=== PATIENT | female | born 1985 | race Caucasian/White ===

== ENCOUNTER → 2020-09-21 11:07 | Outpatient (BNVA) | payer MEDICARE, MEDICAID, SELFPAY | PROVIDERS: Visit Provider Advanced Practice Midwife | DX: Z30.42 Encounter for surveillance of injectable contraceptive (principal) | CPT/HCPCS: 99211 ==

== ENCOUNTER → 2020-12-18 13:01 | Outpatient (BNVA) | payer MEDICARE, MEDICAID, SELFPAY | PROVIDERS: Visit Provider Advanced Practice Midwife | DX: Z30.42 Encounter for surveillance of injectable contraceptive (principal) | CPT/HCPCS: 96372; 99211 ==

== ENCOUNTER → 2021-01-26 15:42 | Outpatient (BNVA) | payer MEDICARE, MEDICAID, SELFPAY | PROVIDERS: Visit Provider Advanced Practice Midwife | DX: Z13.89 Encounter for screening for other disorder (principal) | CPT/HCPCS: Q3014 ==

== ENCOUNTER → 2021-03-15 13:00 | Outpatient (BNVA) | payer MEDICARE, MEDICAID, SELFPAY | PROVIDERS: PCP Internal Medicine; Visit Provider Advanced Practice Midwife | DX: Z30.42 Encounter for surveillance of injectable contraceptive (principal) | CPT/HCPCS: 96372; 99211; J1050 ==

== ENCOUNTER → 2021-06-12 15:05 | Outpatient (BNVA) | payer MEDICARE, MEDICAID, SELFPAY | PROVIDERS: Visit Provider Advanced Practice Midwife | DX: Z30.42 Encounter for surveillance of injectable contraceptive (principal) | CPT/HCPCS: 96372; 99211 ==

== ENCOUNTER 2021-06-19 10:45 | Outpatient (REF) | payer MEDICARE, MEDICAID, SELFPAY ==
[2021-06-19 13:12] LABS: MANUAL DIFF FLAG NO
[2021-06-19 13:16] LABS: Basophils Absolute Auto 0.1 X10*3/uL (0.0-0.2); Basophils Percent Auto 0.6 % (0-2); Eosinophils Absolute Auto 0.2 X10*3/uL (0.0-0.4); Eosinophils Percent Auto 2.3 % (0-4); Hemoglobin 13.5 g/dl (12.0-16.0); Imm Gran Abs Auto 0.02 X10*3/uL (0.00-0.03); Imm Gran Pct Auto 0.3 % (0.0-0.4); Lymphocytes Absolute Auto 1.9 X10*3/uL (1.2-4.9); Lymphocytes Percent Auto 23.3 % (20-40); Mean Corpuscular HGB Conc 32.9 g/dl (31.0-35.0); Mean Corpuscular Hemoglobin 27.5 pg (27.0-33.0); Mean Corpuscular Volume 83.5 fL (80-98); Mean Platelet Volume 9.2 fL (9.4-12.3); Monocytes Absolute Auto 0.7 X10*3/uL (0.1-1.2); Monocytes Percent Auto 8.8 % (2-11); Neutrophils Absolute Auto 5.1 X10*3/uL (2.0-8.3); Neutrophils Percent Auto 64.7 % (45-73); Platelet Count 288 X10*3/uL (160-400); Red Blood Count 4.91 X10*6/uL (4.20-5.50); Red Cell Distribution Width 13.1 % (11.0-16.0); White Blood Count 7.9 X10*3/uL (4.8-10.8)
[2021-06-19 13:31] LABS: Alanine Aminotransferase 23 U/L (0-31); Albumin Level 4.5 g/dL (3.5-5.0); Alkaline Phosphatase 86 U/L (39-117); Anion Gap 12 (12-20); Aspartate Amino Transferase 19 U/L (5-31); Bilirubin Total 0.5 mg/dL (0.0-1.0); Blood Urea Nitrogen 11 mg/dL (9-16); Calcium 9.4 mg/dL (8.4-10.2); Carbon Dioxide 22 mmol/L (22-29); Chloride 109 mmol/L (96-108); Cholesterol 160 mg/dL; Estimated Glomerular Filt Rate > 60; Glucose Fasting 106 mg/dL (60-99); HDL Cholesterol 46 mg/dL; LDL Cholesterol Calculated 102 mg/dl; Potassium 4.2 mmol/L (3.3-5.1); Sodium 139 mmol/L (135-145); Total Protein 7.2 g/dL (6.5-8.0); Triglycerides 62 mg/dL
[2021-06-22 14:46] LABS: TS Negative Control Passed; TS Panel A 4; TS Panel B 0; TS Positive Control Passed; TSpotTB Negative (SeeBelow)
== END 2021-06-19 10:46 | disposition home or self-care (01) ==
LOC: HO.10HDL 10:45
PROVIDERS: Visit Provider Internal Medicine
DX: Z00.00 Encounter for general adult medical examination without abnormal findings (principal); E11.9 Type 2 diabetes mellitus without complications; Z11.1 Encounter for screening for respiratory tuberculosis
CPT/HCPCS: 36415; 80053; 80061; 85025; 86481

== ENCOUNTER → 2021-06-21 11:33 | Outpatient (BNVA) | payer MEDICARE, MEDICAID, SELFPAY | PROVIDERS: Visit Provider Advanced Practice Midwife | CPT/HCPCS: Q3014 ==

== ENCOUNTER → 2021-08-22 13:42 | Outpatient (BNVA) | payer MEDICARE, MEDICAID, SELFPAY | PROVIDERS: Visit Provider Advanced Practice Midwife | DX: Z01.419 Encounter for gynecological examination (general) (routine) without abnormal findings (principal); Z30.42 Encounter for surveillance of injectable contraceptive | CPT/HCPCS: 96372 ==

== ENCOUNTER → 2021-11-07 09:07 | Outpatient (BNVA) | payer MEDICARE, MEDICAID, SELFPAY | PROVIDERS: Visit Provider Advanced Practice Midwife | DX: Z30.42 Encounter for surveillance of injectable contraceptive (principal) | CPT/HCPCS: 96372; 99211 ==

== ENCOUNTER 2021-11-22 08:50 | Outpatient (REF) | payer MEDICARE, MEDICAID, SELFPAY ==
[2021-11-22 11:09] LABS: Alanine Aminotransferase 29 U/L (0-31); Albumin Level 4.1 g/dL (3.5-5.0); Alkaline Phosphatase 77 U/L (39-117); Anion Gap 12 (12-20); Aspartate Amino Transferase 20 U/L (5-31); Bilirubin Total 0.7 mg/dL (0.0-1.0); Blood Urea Nitrogen 11 mg/dL (9-16); Carbon Dioxide 21 mmol/L (22-29); Chloride 109 mmol/L (96-108); Estimated Glomerular Filt Rate > 60; Glucose Fasting 93 mg/dL (60-99); Potassium 4.2 mmol/L (3.3-5.1); Sodium 138 mmol/L (135-145); Total Protein 6.9 g/dL (6.5-8.0)
== END 2021-11-22 08:51 | disposition home or self-care (01) ==
LOC: HO.10HDL 08:50
PROVIDERS: Visit Provider Nurse Practitioner Family
DX: Z13.1 Encounter for screening for diabetes mellitus (principal)
CPT/HCPCS: 36415; 80053

== ENCOUNTER → 2022-01-28 11:34 | Outpatient (BNVA) | payer MEDICARE, MEDICAID, SELFPAY | PROVIDERS: PCP Internal Medicine; Visit Provider Advanced Practice Midwife | DX: Z30.42 Encounter for surveillance of injectable contraceptive (principal) | CPT/HCPCS: 96372; 99211 ==

== ENCOUNTER → 2022-04-30 09:04 | Outpatient (BNVA) | payer MEDICARE, MEDICAID, SELFPAY | PROVIDERS: PCP Internal Medicine; Visit Provider Advanced Practice Midwife | DX: Z30.42 Encounter for surveillance of injectable contraceptive (principal) | CPT/HCPCS: 96372; 99211 ==

== ENCOUNTER → 2022-07-23 09:02 | Outpatient (BNVA) | payer MEDICARE, MEDICAID, SELFPAY | PROVIDERS: PCP Internal Medicine; Visit Provider Advanced Practice Midwife | DX: Z30.42 Encounter for surveillance of injectable contraceptive (principal) | CPT/HCPCS: 96372; 99211 ==

== ENCOUNTER 2024-05-28 09:58 | Outpatient (AMB) | payer MEDICARE, MEDICAID, SELFPAY ==
[2024-05-28 10:00] VITALS: BP 128/80; PULSE 84; O2SAT 97; BMI 48.3
--- NOTE | 2024-05-28 10:00 | A.OFFPC_ITS ---
Vital Signs 05/28/24 10:00 Height 4 ft 10 in Weight 231 lb BMI 48.3 BP 128/80 Blood Pressure Location Lt brachial Position Sitting Pulse 84 Pulse Source Pulse Oximeter Pulse Oximetry (%) 97 Oxygen Delivery Method Room Air Intake Visit Reasons: annual exam Intake Note: Patient is here today for a physical. Sheet Turner Required: No Accompanied by: Self / Same As Patient Allergies No Known Allergies Allergy (Verified 05/28/24 10:05) Medication List - Last Reconciled 05/28/24 by Roney Reilly MD albuterol sulfate 90 mcg/actuation 2 puffs inhalation Q6H PRN lidocaine HCl 2% (Lidocaine Viscous) 5 mL mucous membrane BID PRN 15 days medroxyprogesterone (Depo-Provera) 150 mg IM [id number] methylphenidate HCl ER 36 mg PO QAM omeprazole 20 mg PO DAILY 14 days paroxetine HCl 40 mg PO quetiapine 100 mg PO BEDTIME Tobacco use date assessed: 05/28/24 HPI annual exam HPI Details Asthma and depression on rx; sees psychiatry [facility] Medical History Developmental delay, mild Morbid obesity with BMI of 45.0-49.9, adult Sleep disorder Surgical History No pertinent past surgical history Family History Unknown Adopted Social History Housing: House Alcohol intake: never Patient Tobacco Use Status: Never used Tobacco e-Cigarette/Vaping Use: Never Used Second Hand Smoke Exposure: No service: No Current occupational status: disabled Cognitive needs: No Hearing needs: No Vision needs: No Female Reproductive History Menstrual Age of Menarche: 14 Questionnaire PHQ-9 Over the last 2 weeks, how often have you been bothered by any of the following problems? 1. Little interest or pleasure in doing things: not at all 2. Feeling down, depressed, or hopeless: not at all 3. Trouble falling or staying asleep, or sleeping too much: not at all 4. Feeling tired or having little energy: not at all 5. Poor appetite or overeating: not at all 6. Feeling bad about yourself - or that you are a failure or have let yourself or your family down: not at all 7. Trouble concentrating on things, such as reading the newspaper or watching television: not at all 8. Moving or speaking so slowly that other people could have noticed. Or the opposite - being so fidgety or restless that you have been moving around a lot more than usual: not at all 9. Thoughts that you would be better off or of hurting yourself in some way: not at all Total score: 0 Depression Screening Interpretation: Negative Depression Screening Done: Yes 23508 - PHQ-9 Billing: Yes Source: Developed by Drs. Sid Alfred, Rossy Otto, Juwan Hay and colleagues, with an educational marti from [employer]. Thrive Questionnaire Date Thrive assessed: 05/28/24 I am a: Patient What is your living situation today?: I have a steady place to live Within the past 12 months, did the food you bought not last and you didn't have the money to get more?: Never true Within the past 12 months, did you worry whether your food would run out before you got money to buy more?: Never true Do you have trouble paying for medicines?: No Do you have trouble getting transportation to medical appointments?: No Do you have trouble paying your heating and electricity bill?: No Do you have trouble taking care of your child, family member or friend?: No Do you have trouble with day-to-day activities such as bathing, preparing meals, shopping, managing finances, etc.?: No Are you currently unemployed and looking for a job?: No Are you interested in more education?: No Please select the resources that you would like help with: None Currently or been in a relationship where the following occur: No concerns reported THRIVE Score: 0 AUDIT C Alcohol Use Questionnaire (AUDIT-C) 1. How often do you have a drink containing alcohol?: Never 3. How often do you have six or more drinks on one occasion?: Never Total Score: 0 Score Reviewed/Action Taken: Yes BAIRON-7 AMB Questionnaire BAIRON-7 Date BAIRON - 7 assessed: 05/28/24 Feeling nervous, anxious, or on edge: 0 = Not at all Not being able to stop or control worryin = Not at all Worrying too much about different things: 0 = Not at all Trouble relaxin = Not at all Being so restless that it is hard to sit still: 0 = Not at all Becoming easily annoyed or irritable: 0 = Not at all Feeling afraid as if something awful might happen: 0 = Not at all Total BAIRON-7 score (0-4 normal; 5-9 mild; 10-14 moderate; 15-21 severe): 0 Source: Developed by Drs. Sid Alfred, Rossy Otto, Juwan Hay and colleagues, with an educational marti from [employer]. BAIRON-7 Assessment Billing BAIRON-7 Assessment Tool: BAIRON-7 Assessment 34679 Review of Systems Const Denies chills, Denies fatigue, Denies headache(s) and Denies weight loss Eyes Denies change in vision, Denies diplopia and Denies eye pain ENT Denies vertigo, Denies dizziness, Denies headache(s) and Denies nasal discharge Card Denies chest pain, Denies rapid heart rate and Denies dyspnea on exertion Resp Denies chest congestion, Denies cough, Denies pain with cough and Denies dyspnea on exertion GI Denies abdominal pain, Denies hematochezia and Denies change in bowel habits Musc Denies myalgias, Denies arthralgias and Denies joint swelling Skin/Breast Denies lesions and Denies unusual bruising Neuro Denies vertigo, Denies dizziness, Denies headache(s) and Denies focal weakness Endo Denies fatigue Physical exam (Primary Care) Vital Signs: Last Vital Signs Pulse 84 05/28/24 10:00 BP 128/80 05/28/24 10:00 Pulse Ox 97 05/28/24 10:00 Oxygen Delivery Method Room Air 05/28/24 10:00 BMI result Body Mass Index 48.3 Tobacco/Smoking Status: Tobacco use Status Tobacco use date assessed 05/28/24 05/28/24 10:07 Patient Tobacco Use Status Never used Tobacco 05/28/24 10:03 e-Cigarette/Vaping Use Never Used 05/28/24 10:03 PHQ-9: PHQ-9 Score PHQ-9: Total score 0 05/28/24 10:07 Depression Screening Interpretation: Negative Thrive Assessment: Date of Thrive Assessment Date Thrive assessed 05/28/24 05/28/24 10:07 Currently or been in a relationship where the following occur: No concerns reported Const General: cooperative, healthy appearing and no acute distress Orientation/consciousness: oriented to person, oriented to place and oriented to time HENMT Head: Yes normal to inspection, Yes normocephalic and Yes atraumatic Mouth: Normal oral and palatal mucosa present and tongue normal Throat: Yes posterior oropharynx normal and Yes uvula midline Eyes General: appearance normal, both eyes and all related structures Neck Neck: Yes normal visual inspection, Yes full ROM and Yes no lymphadenopathy Thyroid: Thyroid normal Carotids: normal carotid upstroke Chest Chest palpation & inspection: normal inspection of the chest Resp Effort & Inspection: normal respiratory effort and able to speak in complete sentences Auscultation: clear to auscultation bilaterally Cardio Jugular venous distension: no JVD Palpation: normal PMI Rate: regular rate Rhythm: regular rhythm Heart sounds: S1 normal heart sound present and S2 normal heart sound present GI Inspection: Yes normal to inspection Palpation (GI): Soft to palpation and No hepatosplenomegaly present Auscultation: normal bowel sounds General: Yes no CVA tenderness Back/Spine/Pelvis Back: no CVA tenderness Skin General skin exam: no rashes or lesions noted Neuro General: oriented to person, oriented to place and oriented to time Extrem General: Yes normal to inspection and Yes full ROM Assessment and Plan Assessment & Plan (1) Physical exam: Comment: do labs Code(s): Z00.00 - Encounter for general adult medical examination without abnormal findings Plan: stable; do labs (2) Depression: Code(s): F32.9 - Major depressive disorder, single episode, unspecified Plan: stable; as per psych (3) Asthma: Code(s): J45.909 - Unspecified asthma, uncomplicated Plan: stable; same rx Orders: Orders Lipid Panel Today Z13.220 - Encounter for screening for lipoid disorders Thyroid Stimulating Hormone Today Z13.29 - Encounter for screening for other suspected endocrine disorder Complete Blood Count Auto Diff Today Z13.0 - Encounter for screening for diseases of the blood and blood-forming organs and certain disorders involving the immune mechanism Comprehensive [place]. Panel Fast Today Z13.9 - Encounter for screening, unspecified Coding Level of Care Code Est Pt Prev Care 18-39y(97254) Diagnoses Physical exam Z00.00 Depression F32.9 Asthma J45.909 Additional Codes BAIRON-7 Assessment Billing - BAIRON-7 Assessment Tool: BAIRON-7 Assessment 55080 ([id number])
== END 2024-05-28 10:43 | disposition home or self-care (01) ==
PROVIDERS: PCP Internal Medicine; Visit Provider Internal Medicine
DX: Z00.00 Encounter for general adult medical examination without abnormal findings (principal); F32.9 Major depressive disorder, single episode, unspecified; J45.909 Unspecified asthma, uncomplicated
CPT/HCPCS: 99395

== ENCOUNTER 2024-06-17 09:05 | Outpatient (REF) | payer MEDICARE, MEDICAID, SELFPAY ==
[2024-06-17 09:22] LABS: MANUAL DIFF FLAG NO
[2024-06-17 09:38] LABS: Basophils Absolute Auto 0.1 X10*3/uL (0.0-0.2); Basophils Percent Auto 0.9 % (0-2); Eosinophils Absolute Auto 0.3 X10*3/uL (0.0-0.4); Eosinophils Percent Auto 3.7 % (0-4); Hematocrit 41.1 % (37.0-47.0); Hemoglobin 13.5 g/dl (12.0-16.0); Imm Gran Abs Auto 0.02 X10*3/uL (0.00-0.03); Imm Gran Pct Auto 0.2 % (0.0-0.4); Lymphocytes Absolute Auto 1.9 X10*3/uL (1.2-4.9); Lymphocytes Percent Auto 22.1 % (20-40); Mean Corpuscular HGB Conc 32.8 g/dl (31.0-35.0); Mean Corpuscular Hemoglobin 27.8 pg (27.0-33.0); Mean Corpuscular Volume 84.7 fL (80.0-98.0); Mean Platelet Volume 8.7 fL (9.4-12.3); Monocytes Absolute Auto 0.8 X10*3/uL (0.1-1.2); Monocytes Percent Auto 9.1 % (2-11); Neutrophils Absolute Auto 5.4 x10*3/uL (2.0-8.3); Platelet Count 223 X10*3/uL (160-400); Red Blood Count 4.85 X10*6/uL (4.20-5.50); Red Cell Distribution Width 13.4 % (11.0-16.0); White Blood Count 8.5 X10*3/uL (4.8-10.8)
[2024-06-17 10:11] LABS: Alanine Aminotransferase 23 U/L (0-31); Albumin Level 4.3 g/dL (3.5-5.0); Alkaline Phosphatase 86 U/L (39-117); Anion Gap 11 (12-20); Aspartate Amino Transferase 17 U/L (5-31); Bilirubin Total 0.6 mg/dL (0.0-1.0); Blood Urea Nitrogen 9 mg/dL (9-16); Calcium 9.1 mg/dL (8.4-10.2); Carbon Dioxide 24 mmol/L (22-29); Chloride 109 mmol/L (96-108); Cholesterol 160 mg/dL (<200); Estimated Glomerular Filt Rate > 60; Glucose Fasting 116 mg/dL (60-99); HDL Cholesterol 50 mg/dL (>40); LDL Cholesterol Calculated 95 mg/dL (<100); Potassium 4.1 mmol/L (3.3-5.1); Sodium 140 mmol/L (135-145); Triglycerides 78 mg/dL (<150)
[2024-06-17 10:29] LABS: Thyroid Stimulating Hormone 2.02 uIU/mL (0.32-4.0)
== END 2024-06-17 09:06 | disposition home or self-care (01) ==
LOC: HO.LAB 09:05
PROVIDERS: PCP Internal Medicine; Visit Provider Internal Medicine
DX: Z13.220 Encounter for screening for lipoid disorders (principal); Z13.0 Encounter for screening for diseases of the blood and blood-forming organs and certain disorders involving the immune mechanism; Z13.29 Encounter for screening for other suspected endocrine disorder; Z13.6 Encounter for screening for cardiovascular disorders
CPT/HCPCS: 36415; 80053; 80061; 84443; 85025

== ENCOUNTER 2024-10-04 11:05 | Outpatient (AMB) | payer MEDICARE, MEDICAID, SELFPAY ==
[2024-10-04 11:06] VITALS: BP 112/70; PULSE 91; O2SAT 97; BMI 48.7
--- NOTE | 2024-10-04 11:06 | A.OFFPC_ITS ---
Vital Signs 10/04/24 11:06 Height 4 ft 10 in Weight 233 lb 0.2 oz BMI 48.7 BP 112/70 Blood Pressure Location Lt brachial Position Sitting Pulse 91 Pulse Source Pulse Oximeter Pulse Oximetry (%) 97 Oxygen Delivery Method Room Air Intake Visit Reasons: Med review Allergies No Known Allergies Allergy (Verified 10/04/24 11:07) Tobacco use date assessed: 10/04/24 HPI Med review HPI Details Depression on rx; no longer seeing psych [facility] Medical History Developmental delay, mild Morbid obesity with BMI of 45.0-49.9, adult Sleep disorder Surgical History No pertinent past surgical history Family History Unknown Adopted Social History Housing: House Alcohol intake: never Patient Tobacco Use Status: Never used Tobacco e-Cigarette/Vaping Use: Never Used Second Hand Smoke Exposure: No service: No Current occupational status: disabled Cognitive needs: No Hearing needs: No Vision needs: No Female Reproductive History Menstrual Age of Menarche: 14 Questionnaire Thrive Questionnaire Date Thrive assessed: 05/28/24 AUDIT C Alcohol Use Questionnaire (AUDIT-C) 1. How often do you have a drink containing alcohol?: Never 3. How often do you have six or more drinks on one occasion?: Never Total Score: 0 Score Reviewed/Action Taken: Yes BAIRON-7 AMB Questionnaire BAIRON-7 Date BAIRON - 7 assessed: 05/28/24 Source: Developed by Drs. Sid Alfred, Rossy Otto, Juwan Hay and colleagues, with an educational marti from [employer]. Review of Systems Const Denies chills, Denies headache(s) and Denies weight loss ENT Denies headache(s) Card Denies chest pain, Denies syncope, Denies irregular heart rhythm and Denies dyspnea Resp Denies chest congestion, Denies cough and Denies dyspnea GI Denies abdominal pain, Denies change in stool character, Denies nausea and Denies vomiting Musc Denies deformity and Denies joint swelling Neuro Denies syncope and Denies headache(s) Physical exam (Primary Care) Vital Signs: Last Vital Signs Pulse 91 10/04/24 11:06 BP 112/70 10/04/24 11:06 Pulse Ox 97 10/04/24 11:06 Oxygen Delivery Method Room Air 10/04/24 11:06 BMI result Body Mass Index 48.7 Tobacco/Smoking Status: Tobacco use Status Tobacco use date assessed 10/04/24 10/04/24 11:07 Patient Tobacco Use Status Never used Tobacco 10/04/24 11:07 e-Cigarette/Vaping Use Never Used 10/04/24 11:07 Thrive Assessment: Date of Thrive Assessment Date Thrive assessed 05/28/24 10/04/24 11:07 Const General: cooperative, comfortable, no acute distress and alert Neck Neck: Yes no lymphadenopathy Thyroid: Thyroid normal Resp Effort & Inspection: normal respiratory effort Auscultation: clear to auscultation bilaterally Percussion: percussion normal Cardio Jugular venous distension: no JVD Palpation: normal PMI Rate: regular rate Rhythm: regular rhythm Heart sounds: S1 normal heart sound present and S2 normal heart sound present GI Inspection: Yes normal to inspection Palpation (GI): No hepatosplenomegaly present Skin General skin exam: no rashes or lesions noted Extrem General: Yes no clubbing, cyanosis or edema Coding Level of Care Code Est Pt Level 3 (53963) Diagnoses Depression F32.9 Assessment & Plan Assessment & Plan (1) Depression: Code(s): F32.9 - Major depressive disorder, single episode, unspecified Category: Medical Plan: stable; cont rx Medications: New quetiapine 150 mg PO DAILY 30 tabs 4RF fluoxetine 20 mg PO DAILY 30 caps 4RF
== END 2024-10-04 12:10 | disposition home or self-care (01) ==
PROVIDERS: PCP Internal Medicine; Visit Provider Internal Medicine
DX: F32.9 Major depressive disorder, single episode, unspecified (principal)

== ENCOUNTER → 2024-10-04 11:05 | Outpatient (BNVA) | payer MEDICARE, MEDICAID, SELFPAY | PROVIDERS: PCP Internal Medicine; Visit Provider Internal Medicine | DX: F32.9 Major depressive disorder, single episode, unspecified (principal) | CPT/HCPCS: 99212 ==

== ENCOUNTER 2024-11-12 23:50 | Emergency (ER) | payer MEDICARE, MEDICAID, SELFPAY ==
--- NOTE | 2024-11-12 | ECG_ITS ---
Test Reason : CHEST PAIN Blood Pressure : / mmHG Vent. Rate : 103 BPM Atrial Rate : 103 BPM P-R Int : 128 ms QRS Dur : 090 ms QT Int : 366 ms P-R-T Axes : 025 -36 025 degrees QTc Int : 479 ms Sinus tachycardia Left axis deviation Pulmonary disease pattern Abnormal ECG No previous ECGs available Referred By: Generic ED Physician Electronically Signed By:JESUS PABLO MD
--- NOTE | ~2024-11-12 | XR_ITS ---
CLINICAL HISTORY: chest pain 2 view chest x-ray Comparison: None Findings: The lungs are clear. Heart size is normal. No acute fracture. IMPRESSION: 1. No acute findings. This document has been electronically signed by: Damien Yoder MD on 11/13/2024 01:14:43
--- OUTSIDE RECORDS SUMMARY | 2024-11-12 23:54 | XMS_ITS | Patient Health Record ---
Author Organization [facility] Address [address] [place] [address] Care Team Providers Care Venue Attendant Name Role Phone Tommie FARFAN, Roney Primary Care Provider Autumn Carlin Unavailable [phone] Reason For Referral No Information Encounters Encounter Location Date Provider Diagnosis [facility] [address] [place] [address] 10/05/2024 Autumn Ordonez Plan Of Treatment Next Appt Details Provider Name:Autumn john, 12/15/2024 09:30:00 AM, [address] [place], [address], Insurance Providers Payer Name Payer Address Payer Phone Subscriber Number Group Number Insured Name Patient Relationship to Insured Coverage Start Date Coverage End Date Medicare National [facility] [address] [place] [address] [id number] Chandni Shaikh Self - patient is the insured
[2024-11-13 00:05] VITALS: BP 140/81; PULSE 98; RESP 20; TEMP 36.1; O2SAT 99; BMI 43.6
--- OUTSIDE RECORDS SUMMARY | 2024-11-13 00:11 | XMS_ITS | Patient Health Record ---
Author Organization [facility] Address [address] [place] [address] Care Team Providers Care Regional Driver Name Role Phone Tommie FARFAN, Roney Primary Care Provider Autumn Carlin Unavailable [phone] Reason For Referral No Information Encounters Encounter Location Date Provider Diagnosis [facility] [address] [place] [address] 10/05/2024 Autumn Ordonez Plan Of Treatment Next Appt Details Provider Name:Autumn john, 12/15/2024 09:30:00 AM, [address] [place], [address], Insurance Providers Payer Name Payer Address Payer Phone Subscriber Number Group Number Insured Name Patient Relationship to Insured Coverage Start Date Coverage End Date Medicare National [facility] [address] [place] [address] [id number] Chandni Shaikh Self - patient is the insured
[2024-11-13 00:42] LABS: MANUAL DIFF FLAG NO
[2024-11-13 00:43] LABS: Basophils Absolute Auto 0.1 X10*3/uL (0.0-0.2); Basophils Percent Auto 0.4 % (0-2); Eosinophils Absolute Auto 0.2 X10*3/uL (0.0-0.4); Eosinophils Percent Auto 1.5 % (0-4); Hemoglobin 13.6 g/dl (12.0-16.0); Imm Gran Abs Auto 0.03 X10*3/uL (0.00-0.03); Imm Gran Pct Auto 0.3 % (0.0-0.4); Lymphocytes Absolute Auto 2.5 X10*3/uL (1.2-4.9); Lymphocytes Percent Auto 22.1 % (20-40); Mean Corpuscular Hemoglobin 27.9 pg (27.0-33.0); Mean Corpuscular Volume 82.1 fL (80.0-98.0); Mean Platelet Volume 8.9 fL (9.4-12.3); Monocytes Absolute Auto 0.9 X10*3/uL (0.1-1.2); Neutrophils Absolute Auto 7.6 x10*3/uL (2.0-8.3); Neutrophils Percent Auto 67.7 % (45-73); Platelet Count 246 X10*3/uL (160-400); Red Blood Count 4.87 X10*6/uL (4.20-5.50); Red Cell Distribution Width 13.1 % (11.0-16.0); White Blood Count 11.2 X10*3/uL (4.8-10.8)
[2024-11-13 00:53] LABS: IDNOW Serial# 6674DD1D; Strep A Nucleic Acid Negative (Negative)
[2024-11-13 00:58] LABS: Alanine Aminotransferase 27 U/L (0-31); Albumin Level 4.5 g/dL (3.5-5.0); Alkaline Phosphatase 86 U/L (39-117); Anion Gap 14 (12-20); Aspartate Amino Transferase 29 U/L (5-31); Bilirubin Total 0.5 mg/dL (0.0-1.0); Blood Urea Nitrogen 6 mg/dL (9-16); Calcium 9.1 mg/dL (8.4-10.2); Carbon Dioxide 19 mmol/L (22-29); Chloride 110 mmol/L (96-108); Creatinine Clr Calc Pharmacy 100.5; Estimated Glomerular Filt Rate > 60; Glucose Random 85 mg/dL (60-115); Potassium 3.7 mmol/L (3.3-5.1); Sodium 139 mmol/L (135-145); Total Protein 7.4 g/dL (6.5-8.0)
[2024-11-13 01:10] LABS: Troponin-I High Sensitivity < 2.7 ng/L (<3.5-17.0)
[2024-11-13 01:20] LABS: Influenza A PCR NEGATIVE (Negative); Influenza B PCR NEGATIVE (Negative); Resp Syncy Virus RNA Qual PCR NEGATIVE (Negative); SARS COV2 PCR INHOUSE NEGATIVE (Negative)
--- NOTE | 2024-11-13 02:23 | ED_ITS ---
HPI - Chest Pain General Chief Complaint: Chest Pain Stated Complaint: tight chest , hard time swallowing Time Seen by Provider: 11/13/24 01:47 Source: patient Mode of arrival: ambulatory Limitations: no limitations History of Present Illness ED Provider: HPI narrative: Patient's history of asthma complaining of throat pain mid chest pain for last 1 week feeling increased anxious has any sick contacts no fever no chills no shortness a breath Related Data Home Medications ?Medication ?Instructions ?Recorded ?Confirmed methylphenidate HCl 36 mg 36 mg PO QAM 01/07/22 05/28/24 tablet,extended release 24 hr Previous Rx's ?Medication ?Instructions ?Recorded medroxyprogesterone 150 mg/mL 150 mg IM [id number] #1 mL 08/22/21 intramuscular suspension (Depo-Provera) lidocaine HCl 2 % mucosal solution 5 ml mucous membrane BID PRN pain 01/19/22 (Lidocaine Viscous) 15 days #100 mL omeprazole 20 mg capsule,delayed 20 mg PO DAILY 14 days #14 caps 01/19/22 release albuterol sulfate 90 mcg/actuation 2 puff inhalation Q6H PRN 05/07/24 aerosol inhaler shortness of breath or wheezing #8.5 grams fluoxetine 20 mg capsule 20 mg PO DAILY #30 caps 10/04/24 quetiapine 150 mg tablet 150 mg PO DAILY #30 tabs 10/04/24 cefuroxime axetil 500 mg tablet 500 mg PO BID 7 days #14 tabs 11/13/24 Allergies Allergy/AdvReac Type Severity Reaction Status Date / Time No Known Allergies Allergy Verified 11/13/24 15:14 Review of Systems 2 Review of Systems: Yes all other systems are reviewed and are negative PMFSH Past Medical History Medical History Morbid obesity with BMI of 45.0-49.9, adult Developmental delay, mild Sleep disorder Surgical History No pertinent past surgical history Family History Family History Unknown Adopted Social History Social History Housing: House Alcohol intake: never Patient Tobacco Use Status: Never used Tobacco e-Cigarette/Vaping Use: Never Used Second Hand Smoke Exposure: No Advance Directives: No Advance Directives Information Provided: No Do you have a plan to hurt others: No Plan service: No Current occupational status: disabled Cognitive needs: No Hearing needs: No Vision needs: No Physical Exam 2 Vital Signs: Vital Signs: Last Vital Signs Temp 98.3 F 11/13/24 03:13 Pulse 92 11/13/24 03:13 Resp 16 11/13/24 03:13 BP 142/84 H 11/13/24 03:13 Pulse Ox 100 11/13/24 03:13 O2 Del Method Room Air 11/13/24 03:13 BMI result Body Mass Index 43.6 Appearance: Alert. Oriented X3. No acute distress. ENT: Pharynx normal. Oral Mucosa moist Neck: Normal inspection. Neck supple. CVS: Normal heart rate and rhythm. Pulses normal. Respiratory: No respiratory distress. Equal air entry bilateral, no wheezing/rales/rhonchi Abdomen: Soft and nontender. Bowel sounds are present, no mass palpable, no CVA tenderness Skin: Skin warm and dry. Normal skin color. Normal skin turgor. Extremities: No lower extremity edema. No calf tenderness Neuro: Oriented X 3. Medications Administered Discontinued Medications Generic Name Dose Route Start Last Admin Trade Name Freq PRN Reason Stop Dose Admin Cefuroxime Axetil 500 mg 11/13/24 02:32 11/13/24 03:04 Cefuroxime Axetil 500 Mg Tablet PO 11/13/24 02:33 500 mg ONCE ONE Administration Medical Decision Making Medical Decision Making [facility] Narrative: Patient with anxiety with globus sensation the throat workup is negative will discharge patient home advised to continue her anxiety medication Lab Data [facility] Lab Attestation statement: I reviewed the patient's lab results. 11/13/24 00:29 11/13/24 00:29 Labs: Lab Results 11/13/24 Range/Units 00:29 WBC 11.2 H (4.8-10.8) X10*3/uL RBC 4.87 (4.20-5.50) X10*6/uL Hgb 13.6 (12.0-16.0) g/dl Hct 40.0 (37.0-47.0) % MCV 82.1 (80.0-98.0) fL MCH 27.9 (27.0-33.0) pg MCHC 34.0 (31.0-35.0) g/dl RDW 13.1 (11.0-16.0) % Plt Count 246 (160-400) X10*3/uL MPV 8.9 L (9.4-12.3) fL Immature Gran % (Auto) 0.3 (0.0-0.4) % Neut % (Auto) 67.7 (45-73) % Lymph % (Auto) 22.1 (20-40) % [place] % (Auto) 8.0 (2-11) % Eos % (Auto) 1.5 (0-4) % Baso % (Auto) 0.4 (0-2) % Lymph # (Auto) 2.5 (1.2-4.9) X10*3/uL [place] # (Auto) 0.9 (0.1-1.2) X10*3/uL Eos # (Auto) 0.2 (0.0-0.4) X10*3/uL Baso # (Auto) 0.1 (0.0-0.2) X10*3/uL Abs Immat Gran (auto) 0.03 (0.00-0.03) X10*3/uL Absolute Neuts (auto) 7.6 (2.0-8.3) x10*3/uL Absolute Nucleated RBC 0.000 (0.0-0.012) X10*3/uL Nucleated RBC % (auto) 0.0 (0.0-0.2) /100WBC Sodium 139 (135-145) mmol/L Potassium 3.7 (3.3-5.1) mmol/L Chloride 110 H (96-108) mmol/L Carbon Dioxide 19 L (22-29) mmol/L Anion Gap 14 (12-20) BUN 6 L (9-16) mg/dL Creatinine 0.78 (0.5-1.4) mg/dL Estim Creat Clear Calc 100.5 Estimated GFR > 60 Random Glucose 85 (60-115) mg/dL Calcium 9.1 (8.4-10.2) mg/dL Total Bilirubin 0.5 (0.0-1.0) mg/dL AST 29 (5-31) U/L ALT 27 (0-31) U/L Alkaline Phosphatase 86 (39-117) U/L Troponin I High Sens < 2.7 (<3.5-17.0) ng/L Total Protein 7.4 (6.5-8.0) g/dL Albumin 4.5 (3.5-5.0) g/dL Influenza Type A (PCR) NEGATIVE (Negative) Influenza Type B (PCR) NEGATIVE (Negative) RSV RNA Qual (PCR) NEGATIVE (Negative) SARS-CoV-2 RNA (RT-PCR) NEGATIVE (Negative) S. pyogenes GrpA FARIDEH Negative (Negative) Independent Interpretation I performed an independent interpretation of an: EKG Interpretation: Sinus tachycardia heart rate 103 beats per minute normal intervals left axis no acute ST-T changes no acute ischemia Discharge Plan Discharge Clinical Impression: Globus sensation Patient Disposition: Home, Self-Care Instructions: Pharyngitis (ED) Additional Instructions: Take antibiotic as prescribed Saline gargles Follow with your PCP if not better Prescriptions: New cefuroxime axetil 500 mg tablet 500 mg PO BID 7 Days Qty: 14 0RF No Action albuterol sulfate 90 mcg/actuation HFA aerosol inhaler 2 puff inhalation Q6H PRN (Reason: shortness of breath or wheezing) Qty: 8.5 8RF methylphenidate HCl 36 mg tablet extended release 24hr 36 mg PO QAM lidocaine HCl [Lidocaine Viscous] 2 % solution 5 ml mucous membrane BID PRN (Reason: pain) 15 Days Qty: 100 0RF omeprazole 20 mg capsule,delayed release(DR/EC) 20 mg PO DAILY 14 Days Qty: 14 0RF medroxyprogesterone [Depo-Provera] 150 mg/mL suspension 150 mg IM [id number] Qty: 1 3RF fluoxetine 20 mg capsule 20 mg PO DAILY Qty: 30 4RF quetiapine 150 mg tablet 150 mg PO DAILY Qty: 30 4RF Interventions: ED Discharge Assessment Last Done: 11/13/24 03:13 Discharge Date/Time: 11/13/24 03:15 Print Language: Georgian
[2024-11-13] MEDS: cefuroxime axetiL 500 MG TABLET PO (03:04)
[2024-11-13 03:09] VITALS: BP 142/84; PULSE 92; RESP 16; O2SAT 100
[2024-11-13 03:13] VITALS: BP 142/84; PULSE 92; RESP 16; TEMP 36.8; O2SAT 100
== END 2024-11-13 03:15 | disposition home or self-care (01) ==
PROVIDERS: Emergency Provider Internal Medicine; PCP Internal Medicine
DX: F45.8 Other somatoform disorders (principal); J02.9 Acute pharyngitis, unspecified; F41.9 Anxiety disorder, unspecified; Z03.818 Encounter for observation for suspected exposure to other biological agents ruled out; J45.909 Unspecified asthma, uncomplicated; Z79.899 Other long term (current) drug therapy
CPT/HCPCS: 0241U; 71046; 80053; 84484; 85025; 87651; 93005; 99284

== ENCOUNTER → 2024-11-12 23:58 | Outpatient (BNV) | payer MEDICARE, MEDICAID, SELFPAY | PROVIDERS: Emergency Provider Internal Medicine; PCP Internal Medicine; Visit Provider Internal Medicine Cardiovascular Disease | DX: R07.9 Chest pain, unspecified (principal); R00.0 Tachycardia, unspecified; R94.31 Abnormal electrocardiogram [ECG] [EKG] | CPT/HCPCS: 93010 ==

== ENCOUNTER 2024-11-13 14:56 | Emergency (ER) | payer MEDICARE, MEDICAID, SELFPAY ==
[2024-11-13 15:14] VITALS: BP 107/62; PULSE 92; RESP 18; TEMP 36.3; O2SAT 97; BMI 43.6
--- NOTE | 2024-11-13 15:16 | ED.URI ---
HPI - URI/Sore Throat General Chief Complaint: General Medical Stated Complaint: diff swallowing Time Seen by Provider: 11/13/24 19:20 Source: patient, RN notes reviewed and old records reviewed Mode of arrival: ambulatory Limitations: no limitations History of Present Illness ED Provider: Shaila MONACO Narrative: 39-year-old female presents for evaluation of difficulty swallowing. Nursing notes report the patient has a sore throat, but the patient denies this. She reports that she does not have a sore throat. She reports some discomfort in her chest when she was swallowing The patient's mother states that the patient does not cut up her food or chew before swallowing The patient was seen here late last night and had labs and a strep swab that were reassuring. She reports that she was prescribed antibiotics but has not yet filled them from the pharmacy It is unclear what she was prescribed antibiotics for as her strep test was negative twice Related Data Home Medications ?Medication ?Instructions ?Recorded ?Confirmed methylphenidate HCl 36 mg 36 mg PO QAM 01/07/22 05/28/24 tablet,extended release 24 hr Previous Rx's ?Medication ?Instructions ?Recorded medroxyprogesterone 150 mg/mL 150 mg IM [id number] #1 mL 08/22/21 intramuscular suspension (Depo-Provera) lidocaine HCl 2 % mucosal solution 5 ml mucous membrane BID PRN pain 01/19/22 (Lidocaine Viscous) 15 days #100 mL omeprazole 20 mg capsule,delayed 20 mg PO DAILY 14 days #14 caps 01/19/22 release albuterol sulfate 90 mcg/actuation 2 puff inhalation Q6H PRN 05/07/24 aerosol inhaler shortness of breath or wheezing #8.5 grams fluoxetine 20 mg capsule 20 mg PO DAILY #30 caps 10/04/24 quetiapine 150 mg tablet 150 mg PO DAILY #30 tabs 10/04/24 cefuroxime axetil 500 mg tablet 500 mg PO BID 7 days #14 tabs 11/13/24 Allergies Allergy/AdvReac Type Severity Reaction Status Date / Time No Known Allergies Allergy Verified 11/13/24 15:14 Review of Systems Constitutional: Constitutional: Denies body ache(s), Denies chills and Denies fever(s) ENT: Reports dysphagia, Denies vertigo, Denies dizziness and Denies sore throat Comments: Difficulty swallowing Cardiovascular: Cardiovascular: Denies chest pain and Denies dyspnea Respiratory: Respiratory: Denies cough and Denies dyspnea Gastrointestinal: Gastrointestinal: Denies abdominal pain, Reports dysphagia and Denies vomiting Neurologic: Denies vertigo and Denies dizziness PMFSH Past Medical History Medical History Developmental delay, mild Morbid obesity with BMI of 45.0-49.9, adult Sleep disorder Surgical History No pertinent past surgical history Family History Family History Unknown Adopted Social History Social History Housing: House Alcohol intake: never Patient Tobacco Use Status: Never used Tobacco e-Cigarette/Vaping Use: Never Used Second Hand Smoke Exposure: No Advance Directives: No Advance Directives Information Provided: No Do you have a plan to hurt others: No Plan service: No Current occupational status: disabled Cognitive needs: No Hearing needs: No Vision needs: No Physical Exam Vital Signs: Vital Signs: Last Vital Signs Temp 97.6 F 11/13/24 20:07 Pulse 98 11/13/24 20:07 Resp 16 11/13/24 20:07 BP 149/97 H 11/13/24 20:07 Pulse Ox 99 11/13/24 20:07 O2 Del Method Room Air 11/13/24 20:07 BMI result Body Mass Index 43.6 Const: General: healthy appearing, comfortable, no acute distress, alert and awake Nutritional Appearance: well nourished Orientation/consciousness: patient oriented x3 HEENT: Other: No anterior neck edema, no tenderness over the anterior neck or thyroid region. Head: Yes normocephalic and Yes atraumatic Throat: Yes posterior oropharynx normal Eyes: Eyelids: Yes eyelids normal Conjunctivae: conjunctivae normal Sclerae: sclerae normal Corneas: corneas normal Pupils: Equal, round and reactive pupils present EOM: EOMs intact bilaterally Neck: Neck: Yes full ROM Resp: Effort & Inspection: normal respiratory effort, able to speak in complete sentences and not labored Cardio: Rate: regular rate Rhythm: regular rhythm GI: Inspection: No distended Palpation (GI): Soft to palpation, not firm, nontender, no guarding and not rigid Skin: General skin exam: elasticity normal Neuro: General: patient oriented x3 Cranial nerves: Yes CN's II-XII intact bilaterally, Yes Equal, round and reactive pupils present and Yes Bilaterally intact EOM present Cognition (Neuro): normal cognition Course Course Course Narrative: This is a Rapid Medical Exam performed in triage by Cathy Brush PA-C. Full HPI, ROS and PE to be performed by primary ED provider. 39yo F w/PMHx asthma, depression presenting to the ED c/o sore throat & difficulty/painful swallowing since last night. Was seen in our ED last night had labs, CXR, & viral testing which was all neg. Did NOT pepper picker Rx from pharmacy. Symptoms unchanged PE: mild posterior oropharyngeal erythema. Uvula midline. Talking in complete sentences. Plan: repeat rapid strep Medical Decision Making Medical Decision Making [facility] Narrative: 39-year-old female presents for evaluation of difficulty swallowing. Based on history it sounds like the patient does not cut up her food or she went into small pieces before swallowing. She may have some EGJ dysmotility/Schatzki's ring/achalasia. The patient had 2 strep test in the last 24 hours that were negative. Her retropharynx is not erythematous or edematous. The patient is able to tolerate oral intake I encouraged her to follow up with GI and a referral was provided. In the meantime, I asked the patient to cut her food and she into pieces before swallowing Differential Diagnosis Differential Diagnoses: The differential diagnosis associated with the presentation includes Esophageal dysmotility Achalasia EGJ dysfunction Schatzki's rings Lab Data [facility] Lab Attestation statement: I reviewed the patient's lab results. Strep test negative Labs: Lab Results 11/13/24 Range/Units 15:47 S. pyogenes GrpA FARIDEH Negative (Negative) Discharge Plan Discharge Clinical Impression: Dysphagia Patient Disposition: Home, Self-Care Instructions: Dysphagia (ED) Additional Instructions: Follow-up with the GI provider, Dr. Quiroga at the number provided Call Friday to schedule an appointment You may benefit from an outpatient EGD/endoscopy In the meantime I recommend that you cut your food up into very small pieces before swallowing Follow-up with your primary doctor, return for new or worsening symptoms Prescriptions: No Action albuterol sulfate 90 mcg/actuation HFA aerosol inhaler 2 puff inhalation Q6H PRN (Reason: shortness of breath or wheezing) Qty: 8.5 8RF cefuroxime axetil 500 mg tablet 500 mg PO BID 7 Days Qty: 14 0RF methylphenidate HCl 36 mg tablet extended release 24hr 36 mg PO QAM lidocaine HCl [Lidocaine Viscous] 2 % solution 5 ml mucous membrane BID PRN (Reason: pain) 15 Days Qty: 100 0RF omeprazole 20 mg capsule,delayed release(DR/EC) 20 mg PO DAILY 14 Days Qty: 14 0RF medroxyprogesterone [Depo-Provera] 150 mg/mL suspension 150 mg IM [id number] Qty: 1 3RF fluoxetine 20 mg capsule 20 mg PO DAILY Qty: 30 4RF quetiapine 150 mg tablet 150 mg PO DAILY Qty: 30 4RF Referrals: Sid Quiroga MD [Physician] - (difficulty swallowing) Interventions: ED Discharge Assessment Last Done: 11/13/24 20:07 Discharge Date/Time: 11/13/24 20:11 Print Language: Belarusian
[2024-11-13 16:08] LABS: IDNOW Serial# 08D9AD1C; Strep A Nucleic Acid Negative (Negative)
[2024-11-13 18:38] VITALS: BP 147/67; PULSE 93; RESP 16; TEMP 36.6; O2SAT 99
--- NOTE | 2024-11-13 20:05 | PC.NURSE ---
discharge instructions reviewed with patient, reminded to collect meds from pharmacy that was prescribed last night, pt verbalize understanding
[2024-11-13 20:07] VITALS: BP 149/97; PULSE 98; RESP 16; TEMP 36.4; O2SAT 99
== END 2024-11-13 20:11 | disposition home or self-care (01) ==
PROVIDERS: Physician Assistant; Emergency Provider Emergency Medicine Emergency Medical Services; PCP Internal Medicine
DX: R13.10 Dysphagia, unspecified (principal); J02.9 Acute pharyngitis, unspecified; Z03.818 Encounter for observation for suspected exposure to other biological agents ruled out; J45.909 Unspecified asthma, uncomplicated; Z79.899 Other long term (current) drug therapy
CPT/HCPCS: 0241U; 71046; 80053; 84484; 85025; 87651; 93005; 99283; 99284

== ENCOUNTER → 2024-11-13 | Outpatient (BNV) | payer MEDICARE, MEDICAID, SELFPAY | PROVIDERS: Emergency Provider Internal Medicine; PCP Internal Medicine; Visit Provider Radiology Diagnostic Radiology | DX: R07.9 Chest pain, unspecified (principal) | CPT/HCPCS: 71046 ==

== ENCOUNTER → 2024-11-18 21:52 | Outpatient (BNV) | payer MEDICARE, MEDICAID, SELFPAY | PROVIDERS: Emergency Provider Internal Medicine; PCP Internal Medicine; Visit Provider Radiology Neuroradiology | DX: R13.10 Dysphagia, unspecified (principal) | CPT/HCPCS: 71250 ==

== ENCOUNTER 2024-11-29 14:24 | Emergency (ER) | payer MEDICARE, MEDICAID, SELFPAY ==
[2024-11-29 14:30] VITALS: BP 122/80; PULSE 103; O2SAT 98
[2024-11-29 14:49] VITALS: BP 139/73; PULSE 70; RESP 18; TEMP 37.1; O2SAT 99; BMI 40.8
--- NOTE | 2024-11-29 15:03 | ED.GENADULT ---
HPI - General Adult General Chief complaint: General Medical Stated complaint: DIFF SWALLOW,UNABLE TO KEEP FOOD DOWN X1W PER EMS Time Seen by Provider: 11/29/24 22:07 Source: patient Mode of arrival: ambulatory Limitations: no limitations History of Present Illness ED Provider: WALDO MONACO narrative: 39 yo female with PMH of asthma, pharyngitis, anxiety and depression notes for 3 weeks when she eats something feels stuck in her throat she was Rx an abx recently took one dose which helped states she isn't sure why. She is worried if she eats something it will get stuck then she will vomit and choke on it. She notes no precipitating event, reports she has lost a lot of weight due to this. No fevers, no diff breathing. She is eating cream of wheat and water. Liquids stay down. She has GI appointment in 4 days. She has not tried any OTC meds either MD complaint: diff swallowing Onset (ago): week(s) (3) Location: mouth Radiation: non-radiation Severity: moderate Relieving factors: none Exacerbating factors: eating Associated symptoms: other (weight loss) Treatments prior to arrival: none Related Data Home Medications ?Medication ?Instructions ?Recorded ?Confirmed methylphenidate HCl 36 mg 36 mg PO QAM 01/07/22 05/28/24 tablet,extended release 24 hr Previous Rx's ?Medication ?Instructions ?Recorded medroxyprogesterone 150 mg/mL 150 mg IM [id number] #1 mL 08/22/21 intramuscular suspension (Depo-Provera) lidocaine HCl 2 % mucosal solution 5 ml mucous membrane BID PRN pain 01/19/22 (Lidocaine Viscous) 15 days #100 mL omeprazole 20 mg capsule,delayed 20 mg PO DAILY 14 days #14 caps 01/19/22 release albuterol sulfate 90 mcg/actuation 2 puff inhalation Q6H PRN 05/07/24 aerosol inhaler shortness of breath or wheezing #8.5 grams fluoxetine 20 mg capsule 20 mg PO DAILY #30 caps 10/04/24 quetiapine 150 mg tablet 150 mg PO DAILY #30 tabs 10/04/24 cefuroxime axetil 500 mg tablet 500 mg PO BID 7 days #14 tabs 11/13/24 metoclopramide HCl 5 mg tablet 5 mg PO TID PRN nausea and 01/20/25 (Reglan) vomiting #20 tabs omeprazole 20 mg capsule,delayed 20 mg PO BID #28 caps 11/29/24 release Allergies Allergy/AdvReac Type Severity Reaction Status Date / Time No Known Allergies Allergy Verified 11/29/24 14:54 Review of Systems Review of Systems: Constitutional : No Fever, No Chills, No Fatigue, pos weight loss ENT/Mouth : No sore throat, No Rhinorrhea Eyes: No Eye Pain, No Swelling, No Redness Cardiovascular : No Chest Pain, No SOB, No Dyspnea on Exertion Respiratory : No Cough, No Sputum Gastrointestinal : No Nausea, No Vomiting, No Diarrhea, No abdominal Pain Genitourinary : No Dysuria, No Urinary Frequency, No Hematuria, Musculoskeletal : No joint pain, No Myalgias, No Joint Swelling Skin : No Skin Lesions, No rash Neuro : No Weakness, No Numbness, No Dizziness, no Headache, pos dysphagia Psych : No Anxiety/Panic, No Depression All other systems reviewed and are negative [facility] Past Medical History Attestation statement: The following information was validated with the patient. Source: old records reviewed Medical History Morbid obesity with BMI of 45.0-49.9, adult Developmental delay, mild Sleep disorder Surgical History No pertinent past surgical history Family History Family History Unknown Adopted Social History Social History Housing: House Alcohol intake: never Patient Tobacco Use Status: Never used Tobacco e-Cigarette/Vaping Use: Never Used Second Hand Smoke Exposure: No Advance Directives: No Advance Directives Information Provided: No Do you have a plan to hurt others: No Plan service: No Current occupational status: disabled Cognitive needs: No Hearing needs: No Vision needs: No Physical Exam ED Vital Signs: Vital Signs - 24 hr 11/29/24 14:49 Temperature 98.8 F Pulse Rate 70 Respiratory Rate 18 Blood Pressure 139/73 Pulse Oximetry 99 Oxygen Delivery Method Room Air BMI result Body Mass Index 40.8 Appearance: Alert. Oriented X3. No acute distress. Eyes: Pupils equal, round and reactive to light. ENT: Pharynx normal. no swelling, exudates, no mass felt in throat sublingual and submandibular spaces are normal Neck: Normal inspection. Neck supple. CVS: Normal heart rate and rhythm. Pulses normal. Respiratory: No respiratory distress. Breath sounds normal. Abdomen: Soft and nontender. Skin: Skin warm and dry. Normal skin color. Normal skin turgor. Extremities: No lower extremity edema. No calf ttp Neuro: Oriented X 3. No motor deficit. No sensory deficit. CN2-12 intact Course Course Course Narrative: This is an RME: Additional HPI, ROS, PE not included below will be deferred to primary provider. RME assessment and note performed by: Shannan Peng PA-C This is a 39 y/o F who presents to the ER with concerns for globus sensation and sore throat. Has been seen here multiple times, advised to f.u with gastro, no appt until february. Plan: labs, strep swab. +/- diagnostic imaging. Medical Decision Making Medical Decision Making [facility] Narrative: 39 yo female with PMH of asthma, pharyngitis, anxiety and depression here with c/o diff swallowing but on exam she is not dehyrated appearing, labs reassuring, no mass felt it has been 3 weeks she has no signs of swelling at this time will start on PPI and reglan then DC home with follow up. Not toxic appearing, normal voice, no drooling just had CT chest as well which shows no large mass. Differential Diagnosis Differential Diagnoses: The differential diagnosis associated with the presentation includes dysphagia, esophagitis, mass less likely given CT scan Admission/Observation Consideration of admission/observation: Escalation of care including admission/observation considered VS stable and no dehydration at this time stable for DC Lab Data [facility] Lab Attestation statement: I reviewed the patient's lab results. 11/29/24 15:21 11/29/24 15:21 Labs: Lab Results 11/29/24 Range/Units 15:21 WBC 7.8 (4.8-10.8) X10*3/uL RBC 5.00 (4.20-5.50) X10*6/uL Hgb 14.0 (12.0-16.0) g/dl Hct 41.3 (37.0-47.0) % MCV 82.6 (80.0-98.0) fL MCH 28.0 (27.0-33.0) pg MCHC 33.9 (31.0-35.0) g/dl RDW 13.2 (11.0-16.0) % Plt Count 247 (160-400) X10*3/uL MPV 9.2 L (9.4-12.3) fL Immature Gran % (Auto) 0.1 (0.0-0.4) % Neut % (Auto) 67.1 (45-73) % Lymph % (Auto) 19.4 L (20-40) % [place] % (Auto) 11.0 (2-11) % Eos % (Auto) 1.9 (0-4) % Baso % (Auto) 0.5 (0-2) % Lymph # (Auto) 1.5 (1.2-4.9) X10*3/uL [place] # (Auto) 0.9 (0.1-1.2) X10*3/uL Eos # (Auto) 0.2 (0.0-0.4) X10*3/uL Baso # (Auto) 0.0 (0.0-0.2) X10*3/uL Abs Immat Gran (auto) 0.01 (0.00-0.03) X10*3/uL Absolute Neuts (auto) 5.3 (2.0-8.3) x10*3/uL Absolute Nucleated RBC 0.000 (0.0-0.012) X10*3/uL Nucleated RBC % (auto) 0.0 (0.0-0.2) /100WBC Sodium 139 (135-145) mmol/L Potassium 4.1 (3.3-5.1) mmol/L Chloride 108 (96-108) mmol/L Carbon Dioxide 22 (22-29) mmol/L Anion Gap 13 (12-20) BUN 7 L (9-16) mg/dL Creatinine 0.79 (0.5-1.4) mg/dL Estim Creat Clear Calc 95.4 Estimated GFR > 60 Random Glucose 83 (60-115) mg/dL Calcium 9.5 (8.4-10.2) mg/dL Magnesium 2.2 (1.6-2.6) mg/dL Total Bilirubin 0.7 (0.0-1.0) mg/dL Direct Bilirubin 0.3 (0.0-0.5) mg/dL AST 28 (5-31) U/L ALT 36 H (0-31) U/L Alkaline Phosphatase 84 (39-117) U/L Total Protein 7.5 (6.5-8.0) g/dL Albumin 4.4 (3.5-5.0) g/dL Monoscreen Negative (Negative) S. pyogenes GrpA FARIDEH Negative (Negative) External Record Review External record reviewed: Outpatient record and Prior outpatient radiology Prescription Management I considered prescription management with: Other Discharge Plan Discharge Clinical Impression: Dysphagia Patient Disposition: Home, Self-Care Instructions: Dysphagia (ED), Full Liquid Diet (DC) Additional Instructions: keep your GI appointment at this time will start on reglan and omeprazole until you are seen return for any worsening symptoms or concerns your labs are normal and show no signs of electrolyte abnormality or dehydration neg for strep throat and mono Prescriptions: New omeprazole 20 mg capsule,delayed release(DR/EC) 20 mg PO BID Qty: 28 0RF metoclopramide HCl [Reglan] 5 mg tablet 5 mg PO TID PRN (Reason: nausea and vomiting) Qty: 20 0RF No Action albuterol sulfate 90 mcg/actuation HFA aerosol inhaler 2 puff inhalation Q6H PRN (Reason: shortness of breath or wheezing) Qty: 8.5 8RF cefuroxime axetil 500 mg tablet 500 mg PO BID 7 Days Qty: 14 0RF methylphenidate HCl 36 mg tablet extended release 24hr 36 mg PO QAM lidocaine HCl [Lidocaine Viscous] 2 % solution 5 ml mucous membrane BID PRN (Reason: pain) 15 Days Qty: 100 0RF omeprazole 20 mg capsule,delayed release(DR/EC) 20 mg PO DAILY 14 Days Qty: 14 0RF medroxyprogesterone [Depo-Provera] 150 mg/mL suspension 150 mg IM [id number] Qty: 1 3RF fluoxetine 20 mg capsule 20 mg PO DAILY Qty: 30 4RF quetiapine 150 mg tablet 150 mg PO DAILY Qty: 30 4RF Print Language: Maori
[2024-11-29 15:26] LABS: MANUAL DIFF FLAG NO
[2024-11-29 15:28] LABS: Basophils Percent Auto 0.5 % (0-2); Eosinophils Absolute Auto 0.2 X10*3/uL (0.0-0.4); Eosinophils Percent Auto 1.9 % (0-4); Hematocrit 41.3 % (37.0-47.0); Imm Gran Abs Auto 0.01 X10*3/uL (0.00-0.03); Imm Gran Pct Auto 0.1 % (0.0-0.4); Lymphocytes Absolute Auto 1.5 X10*3/uL (1.2-4.9); Lymphocytes Percent Auto 19.4 % (20-40); Mean Corpuscular HGB Conc 33.9 g/dl (31.0-35.0); Mean Corpuscular Volume 82.6 fL (80.0-98.0); Mean Platelet Volume 9.2 fL (9.4-12.3); Monocytes Absolute Auto 0.9 X10*3/uL (0.1-1.2); Neutrophils Absolute Auto 5.3 x10*3/uL (2.0-8.3); Neutrophils Percent Auto 67.1 % (45-73); Platelet Count 247 X10*3/uL (160-400); Red Cell Distribution Width 13.2 % (11.0-16.0); White Blood Count 7.8 X10*3/uL (4.8-10.8)
[2024-11-29 15:34] LABS: IDNOW Serial# 08D9AD1C; Strep A Nucleic Acid Negative (Negative)
[2024-11-29 15:43] LABS: Monotest Negative (Negative)
[2024-11-29 15:50] LABS: Alanine Aminotransferase 36 U/L (0-31); Albumin Level 4.4 g/dL (3.5-5.0); Anion Gap 13 (12-20); Aspartate Amino Transferase 28 U/L (5-31); Bilirubin Direct 0.3 mg/dL (0.0-0.5); Bilirubin Total 0.7 mg/dL (0.0-1.0); Blood Urea Nitrogen 7 mg/dL (9-16); Calcium 9.5 mg/dL (8.4-10.2); Carbon Dioxide 22 mmol/L (22-29); Chloride 108 mmol/L (96-108); Creatinine Clr Calc Pharmacy 95.4; Estimated Glomerular Filt Rate > 60; Glucose Random 83 mg/dL (60-115); Magnesium 2.2 mg/dL (1.6-2.6); Potassium 4.1 mmol/L (3.3-5.1); Sodium 139 mmol/L (135-145); Total Protein 7.5 g/dL (6.5-8.0)
[2024-11-29 16:13] LABS: Alkaline Phosphatase 84 U/L (39-117)
[2024-11-29 22:37] VITALS: BP 127/68; PULSE 75; RESP 17; TEMP 36.6; O2SAT 98
[2024-11-29] MEDS: Metoclopramide HCl 10 MG TABLET PO (22:40)
[2024-11-29] MEDS: Omeprazole 20 MG CAPSULE.DR PO (22:40)
[2024-11-29 22:46] VITALS: BP 127/68; PULSE 75; RESP 17; TEMP 36.6; O2SAT 98
== END 2024-11-29 22:53 | disposition home or self-care (01) ==
PROVIDERS: Physician Assistant Medical; Emergency Provider Emergency Medicine; PCP Internal Medicine
DX: R13.10 Dysphagia, unspecified (principal); R09.A2 Foreign body sensation, throat
CPT/HCPCS: 36415; 80048; 80076; 83735; 85025; 86308; 87651; 99282; 99283

== ENCOUNTER 2024-12-20 06:14 | Emergency (ER) | payer MEDICARE, MEDICAID, SELFPAY ==
--- NOTE | ~2024-12-20 | XR_ITS ---
CLINICAL HISTORY: chest pain 2 view chest x-ray. Comparison: CT/SR - CT CHEST WO IV CON - 11/18/24 22:06 EST CR - XR CHEST 2V - 11/13/24 00:37 EST Findings: Normal lung volumes. Mild bronchial wall thickening. No airspace disease. No pneumothorax or pleural effusion. Heart size normal. No passive venous congestion. No midline shift or tracheal deviation. No acute fracture. Impression: 1. Mild bronchial wall thickening. No airspace disease. This document has been electronically signed by: Adam Arcos MD on 12/20/2024 07:46:22
--- NOTE | 2024-12-20 06:15 | ECG_ITS ---
Test Reason : chest pain Blood Pressure : */* mmHG Vent. Rate : 85 BPM Atrial Rate : 85 BPM P-R Int : 120 ms QRS Dur : 82 ms QT Int : 380 ms P-R-T Axes : 15 -43 10 degrees QTcB Int : 452 ms Normal sinus rhythm with sinus arrhythmia Left axis deviation Low voltage QRS Possible Anterolateral infarct , age undetermined Abnormal ECG When compared with ECG of 12-Nov-2024 23:58, Nonspecific T wave abnormality, worse in Anterolateral leads Referred By: Generic ED Physician Electronically Signed By: JESUS PABLO MD
[2024-12-20 06:17] VITALS: BP 126/90; PULSE 100; O2SAT 97
[2024-12-20 06:23] VITALS: BP 118/67; PULSE 81; RESP 18; TEMP 37.1; O2SAT 97; BMI 39.6
[2024-12-20 06:36] LABS: MANUAL DIFF FLAG NO
[2024-12-20 06:41] LABS: Basophils Percent Auto 0.4 % (0-2); Eosinophils Absolute Auto 0.2 X10*3/uL (0.0-0.4); Eosinophils Percent Auto 2.9 % (0-4); Hematocrit 37.8 % (37.0-47.0); Hemoglobin 12.7 g/dl (12.0-16.0); Imm Gran Abs Auto 0.02 X10*3/uL (0.00-0.03); Imm Gran Pct Auto 0.3 % (0.0-0.4); Lymphocytes Absolute Auto 1.8 X10*3/uL (1.2-4.9); Lymphocytes Percent Auto 24.7 % (20-40); Mean Corpuscular HGB Conc 33.6 g/dl (31.0-35.0); Mean Corpuscular Volume 83.3 fL (80.0-98.0); Mean Platelet Volume 9.1 fL (9.4-12.3); Monocytes Absolute Auto 0.7 X10*3/uL (0.1-1.2); Neutrophils Absolute Auto 4.6 x10*3/uL (2.0-8.3); Neutrophils Percent Auto 62.7 % (45-73); Platelet Count 246 X10*3/uL (160-400); Red Blood Count 4.54 X10*6/uL (4.20-5.50); Red Cell Distribution Width 13.4 % (11.0-16.0); White Blood Count 7.3 X10*3/uL (4.8-10.8)
[2024-12-20 06:53] LABS: Anion Gap 13 (12-20); Blood Urea Nitrogen < 3 mg/dL (9-16); Calcium 8.9 mg/dL (8.4-10.2); Carbon Dioxide 20 mmol/L (22-29); Chloride 111 mmol/L (96-108); Creatinine Clr Calc Pharmacy 108.9; Estimated Glomerular Filt Rate > 60; Glucose Random 104 mg/dL (60-115); Potassium 3.2 mmol/L (3.3-5.1); Sodium 141 mmol/L (135-145)
[2024-12-20 07:01] LABS: Troponin-I High Sensitivity < 2.7 ng/L (<3.5-17.0)
--- NOTE | 2024-12-20 09:23 | ED_ITS ---
HPI - Chest Pain General Chief Complaint: Chest Pain Stated Complaint: CP (skipping beats, tight) 04/19 pain, throat issue Time Seen by Provider: 12/20/24 09:23 Source: patient Mode of arrival: ambulatory Limitations: no limitations History of Present Illness ED Provider: Nydia Roberson PA-C HPI narrative: Patient is a 39 year old assigned female at with a history of asthma, anxiety, depression, and dysphasia presenting to the emergency department today with palpitations and continued feeling of things stuck in her throat. Patient states that last night she felt like her heart skipped a beat and she continues to feel that what she eats is getting stuck in her throat despite her being able to drink fluids. Patient states that she did call GI and they cannot get her in until February which she feels is too long. Patient states that when her heart skipped a beat she had a moment of pain but that has now resolved. Patient denies any dizziness, lightheadedness, abdominal pain, nausea, vomiting, fever, chills, blurry vision, double vision, loss of vision, difficulty breathing, shortness of breath, back pain, night sweats, pain with urination, increased urinary frequency, increased urinary urgency, blood in her urine or stool, syncope or a near syncopal episode, recent trauma or falls, bowel incontinence, bladder incontinence, or any other complaints at this time. Related Data Home Medications ?Medication ?Instructions ?Recorded ?Confirmed methylphenidate HCl 36 mg 36 mg PO QAM 01/07/22 05/28/24 tablet,extended release 24 hr Previous Rx's ?Medication ?Instructions ?Recorded medroxyprogesterone 150 mg/mL 150 mg IM [id number] #1 mL 08/22/21 intramuscular suspension (Depo-Provera) lidocaine HCl 2 % mucosal solution 5 ml mucous membrane BID PRN pain 01/19/22 (Lidocaine Viscous) 15 days #100 mL omeprazole 20 mg capsule,delayed 20 mg PO DAILY 14 days #14 caps 01/19/22 release albuterol sulfate 90 mcg/actuation 2 puff inhalation Q6H PRN 05/07/24 aerosol inhaler shortness of breath or wheezing #8.5 grams fluoxetine 20 mg capsule 20 mg PO DAILY #30 caps 10/04/24 quetiapine 150 mg tablet 150 mg PO DAILY #30 tabs 11/25/24 cefuroxime axetil 500 mg tablet 500 mg PO BID 7 days #14 tabs 11/13/24 metoclopramide HCl 5 mg tablet 5 mg PO TID PRN nausea and 11/29/24 (Reglan) vomiting #20 tabs omeprazole 20 mg capsule,delayed 20 mg PO BID #28 caps 11/29/24 release quetiapine 200 mg tablet,extended 200 mg PO BEDTIME #30 tabs 12/06/24 release 24 hr (Seroquel XR) Allergies Allergy/AdvReac Type Severity Reaction Status Date / Time No Known Allergies Allergy Verified 12/20/24 06:33 Review of Systems 2 Constitutional: Constitutional: Reports no additional constitutional complaints, Denies chills, Denies fever(s) and Denies night sweats Eyes: Eyes: Reports no additional eye complaints, Denies blurry vision, Denies change in vision, Denies diplopia, Denies eye discharge, Denies loss of vision and Denies eye pain ENT: Denies dizziness Cardiovascular: Cardiovascular: Reports no additional cardiovascular complaints, Reports chest pain (now resolved), Denies lightheadedness, Denies Loss of Consciousness, Reports palpitations and Denies dyspnea Respiratory: Respiratory: Reports no additional respiratory complaints and Denies dyspnea Gastrointestinal: Gastrointestinal: Reports no additional gastrointestinal complaints, Denies abdominal pain, Denies melena, Denies hematochezia, Denies change in bowel habits and Denies change in stool character Genitourinary: Genitourinary: Denies hematuria, Denies urinary frequency, Denies dysuria, Denies urinary incontinence, Denies urinary hesitancy and Denies urinary urgency Musculoskeletal: Musculoskeletal: Reports no additional musculoskeletal complaints, Denies numbness and Denies tingling Neurologic: Denies dizziness, Denies loss of vision, Denies numbness and Denies tingling Psychiatric: Psychiatric: Reports no additional psychiatric complaints Endocrine: Endocrine: Reports no additional endocrine complaints and Reports palpitations Hematologic/Lymphatic: Hematologic/Lymphatic: Reports no additional hematologic/lymphatic complaints Allergic/Immunologic: Allergic/Immunologic: Reports no additional allergic/immunologic complaints PMFSH Past Medical History Attestation statement: The following information was validated with the patient. Source: old records reviewed and nursing notes reviewed Medical History Morbid obesity with BMI of 45.0-49.9, adult Developmental delay, mild Sleep disorder Surgical History No pertinent past surgical history Family History Family History Unknown Adopted Social History Social History Housing: House Alcohol intake: never Patient Tobacco Use Status: Never used Tobacco e-Cigarette/Vaping Use: Never Used Second Hand Smoke Exposure: No service: No Current occupational status: disabled Cognitive needs: No Hearing needs: No Vision needs: No Physical Exam 2 Vital Signs: Vital Signs: Last Vital Signs Temp 98.7 F 12/20/24 09:46 Pulse 81 12/20/24 09:46 Resp 18 12/20/24 09:46 BP 118/67 12/20/24 09:46 Pulse Ox 97 12/20/24 09:46 O2 Del Method Room Air 12/20/24 09:46 BMI result Body Mass Index 39.6 Const: General: cooperative, no acute distress, alert and awake Nutritional Appearance: well nourished Orientation/consciousness: patient oriented x3 Limitations: no limitations HEENT: Head: Yes normal to inspection and Yes atraumatic Ears: hearing grossly normal bilaterally and external ears normal General nose exam: Normal external nose present, no nasal discharge noted and no epistaxis Face and sinus: Yes normal facial exam, No abrasion and No laceration Mouth: Normal oral and palatal mucosa present, no drooling and no muffled voice Eyes: General: appearance normal, both eyes and all related structures P eriorbital: periorbital findings normal Eyelids: Yes eyelids normal C onjunctivae: conjunctivae normal Pupils: Equal, round and reactive pupils present EOM: EOMs intact bilaterally Neck: Neck: Yes normal visual inspection, Yes full ROM and Yes no lymphadenopathy Chest: Chest palpation & inspection: normal inspection of the chest Resp: Effort & Inspection: normal respiratory effort and able to speak in complete sentences GI: Inspection: Yes normal to inspection Neuro: General: patient oriented x3, moves all extremities and CN's II-XI intact bilaterally Cranial nerves: Yes Equal, round and reactive pupils present Cognition (Neuro): normal cognition Extrem: General: Yes normal to inspection, Yes full ROM and Yes capillary refill normal Psych: Appearance: grossly normal Mental Status: mental status grossly normal Affect: normal affect Attitude: cooperative Thought process: N ormal thought process present Thought content: Normal thought content present Insight: Good insight present (Psych) Medical Decision Making Medical Decision Making [facility] Narrative: Patient is a 39 year old assigned female at with a history of asthma, anxiety, depression, and dysphasia presenting to the emergency department today with palpitations and continued feeling of things stuck in her throat. Patient's physical exam was unremarkable. Patient's blood work was unremarkable. Patient's EKG was unremarkable. Patient's chest x-ray showed no acute process. Patient able to tolerate PO fluids while in the department. I explained my physical exam findings as well as all test results to the patient. I answered all questions asked by the patient. I stressed the importance of the patient taking her medication as directed (either prescribed or as the over the counter packaging recommends). I stressed the importance of the patient following up with her primary care provider and a GI specialist. I stressed the importance of the patient returning to the emergency department immediately if her symptoms were to worsen or if she were to develop any dizziness, shortness of breath, difficulty breathing, chest pain, blurry vision, loss of vision, nausea, vomiting, abdominal pain, fever, chills, back pain, or any other complaints. Patient verbalized agreement and understanding with this treatment plan and discharge. I reached out to the [facility] GI team who recommended the patient follow up with her PCP first and they will continue working on getting her scheduled sooner. Differential Diagnosis Differential Diagnoses: The differential diagnosis associated with the presentation includes Atypical chest pain Dysphasia Admission/Observation Consideration of admission/observation: Escalation of care including admission/observation considered Patient would have been admitted to the hospital had her work up had any findings where hospital admission was appropriate and her clinical presentation warranted hospital admission. Lab Data [facility] Lab Attestation statement: I reviewed the patient's lab results. My interpretation of these results are in the [facility] Rationale portion of this note. 12/20/24 06:30 12/20/24 06:30 Labs: Lab Results 12/20/24 Range/Units 06:30 WBC 7.3 (4.8-10.8) X10*3/uL RBC 4.54 (4.20-5.50) X10*6/uL Hgb 12.7 (12.0-16.0) g/dl Hct 37.8 (37.0-47.0) % MCV 83.3 (80.0-98.0) fL MCH 28.0 (27.0-33.0) pg MCHC 33.6 (31.0-35.0) g/dl RDW 13.4 (11.0-16.0) % Plt Count 246 (160-400) X10*3/uL MPV 9.1 L (9.4-12.3) fL Immature Gran % (Auto) 0.3 (0.0-0.4) % Neut % (Auto) 62.7 (45-73) % Lymph % (Auto) 24.7 (20-40) % Metcalfe % (Auto) 9.0 (2-11) % Eos % (Auto) 2.9 (0-4) % Baso % (Auto) 0.4 (0-2) % Lymph # (Auto) 1.8 (1.2-4.9) X10*3/uL Metcalfe # (Auto) 0.7 (0.1-1.2) X10*3/uL Eos # (Auto) 0.2 (0.0-0.4) X10*3/uL Baso # (Auto) 0.0 (0.0-0.2) X10*3/uL Abs Immat Gran (auto) 0.02 (0.00-0.03) X10*3/uL Absolute Neuts (auto) 4.6 (2.0-8.3) x10*3/uL Absolute Nucleated RBC 0.000 (0.0-0.012) X10*3/uL Nucleated RBC % (auto) 0.0 (0.0-0.2) /100WBC Sodium 141 (135-145) mmol/L Potassium 3.2 L D (3.3-5.1) mmol/L Chloride 111 H (96-108) mmol/L Carbon Dioxide 20 L (22-29) mmol/L Anion Gap 13 (12-20) BUN < 3 L (9-16) mg/dL Creatinine 0.68 (0.5-1.4) mg/dL Estim Creat Clear Calc 108.9 Estimated GFR > 60 Random Glucose 104 (60-115) mg/dL Calcium 8.9 D (8.4-10.2) mg/dL Troponin I High Sens < 2.7 (<3.5-17.0) ng/L Independent Interpretation I performed an independent interpretation of an: EKG and Plain X-Ray Interpretation: My interpretation is in agreement with the radiologist's impression of this imaging study. LCLINICAL HISTORY: chest pain 2 view chest x-ray. Comparison: CT/SR - CT CHEST WO IV CON - 11/18/24 22:06 EST CR - XR CHEST 2V - 11/13/24 00:37 EST Findings: Normal lung volumes. Mild bronchial wall thickening. No airspace disease. No pneumothorax or pleural effusion. Heart size normal. No passive venous congestion. No midline shift or tracheal deviation. No acute fracture. Impression: 1. Mild bronchial wall thickening. No airspace disease. This document has been electronically signed by: Adam Arcos MD on 12/20/2024 07:46:22 Dictated By: Adam Arcos MD Signed By: Electronically signed by Adam Arcos MD 12/20/24 0747 Vent. Rate: 85 BPM Atrial Rate: 85 BPM P-R Int: 120 ms QRS Dur: 82 ms QT Int: 380 ms P-R-T Axes: 15 -43 10 degrees QTcB Int: 452 ms Normal sinus rhythm with sinus arrhythmia Left axis deviation Low voltage QRS Possible Anterolateral infarct , age undetermined When compared with ECG of 12-Nov-2024 23:58, Nonspecific T wave abnormality, worse in Anterolateral leads Electronically Signed By: AIDEN PABLO MD Dictated By: Aiden Pablo MD Signed By: Electronically signed by Aiden Pablo MD 12/20/24 0951 Radiology Impression Discussion of test interpretation with radiology: I have reviewed the radiologist's reading. Discharge Plan Discharge Clinical Impression: Atypical chest pain, Dysphagia Patient Disposition: Home, Self-Care Instructions: Chest Pain (DC), Dysphagia (ED) Additional Instructions: Follow up with your primary care provider and a GI specialist. Return to the emergency department immediately if your symptoms worsen or if you develop any dizziness, shortness of breath, difficulty breathing, chest pain, blurry vision, loss of vision, nausea, vomiting, abdominal pain, fever, chills, back pain, or any other complaints. Prescriptions: No Action albuterol sulfate 90 mcg/actuation HFA aerosol inhaler 2 puff inhalation Q6H PRN (Reason: shortness of breath or wheezing) Qty: 8.5 8RF quetiapine [Seroquel XR] 200 mg tablet extended release 24 hr 200 mg PO BEDTIME Qty: 30 2RF cefuroxime axetil 500 mg tablet 500 mg PO BID 7 Days Qty: 14 0RF omeprazole 20 mg capsule,delayed release(DR/EC) 20 mg PO BID Qty: 28 0RF metoclopramide HCl [Reglan] 5 mg tablet 5 mg PO TID PRN (Reason: nausea and vomiting) Qty: 20 0RF methylphenidate HCl 36 mg tablet extended release 24hr 36 mg PO QAM lidocaine HCl [Lidocaine Viscous] 2 % solution 5 ml mucous membrane BID PRN (Reason: pain) 15 Days Qty: 100 0RF omeprazole 20 mg capsule,delayed release(DR/EC) 20 mg PO DAILY 14 Days Qty: 14 0RF medroxyprogesterone [Depo-Provera] 150 mg/mL suspension 150 mg IM [id number] Qty: 1 3RF fluoxetine 20 mg capsule 20 mg PO DAILY Qty: 30 4RF quetiapine 150 mg tablet 150 mg PO DAILY Qty: 30 4RF Referrals: [facility] [Provider Group] (Call to establish and follow up with a GI specialist. ) Roney Reilly MD [Primary Care Provider] - Interventions: ED Discharge Assessment Last Done: 12/20/24 09:46 Discharge Date/Time: 12/20/24 09:33 Print Language: Macedonian
[2024-12-20 09:46] VITALS: BP 118/67; PULSE 81; RESP 18; TEMP 37.1; O2SAT 97
--- OUTSIDE RECORDS SUMMARY | 2024-12-20 10:00 | XMS_ITS ---
Author Organization [facility] Address [address] [place] [address] Care Team Providers Care Sleep Lab Technologist Name Role Phone Roney Reilly MD Primary Care Provider Autumn Carlin Unavailable [phone] Social History Tobacco Use: Social History Observation Description Date Details (start date - stop date) Never Smoker NA - NA Tobacco use other than smoking: Question Answer Notes Are you an other tobacco user? No Tobacco Control (Standard) Question Answer Notes Tobacco use: Nonsmoker Additional Findings: Tobacco non-user Current no nsmoker AUDIT-C (Standard) Question Answer Notes Did you have a drink containing alcohol in the p ast year? No Points 0 Interpretation Negative Encounters Encounter Location Date Provider Diagnosis [address] [address] 12/15/2024 Autumn Ordonez Plan Of Treatment Next Appt Details Provider Name:Autumn john, 02/23/2025 02:00:00 PM, [address] [place] [address], [phone], Progress Notes * PEDRO LUISLennyeeDOB:1985 ( 39 yo F)Acc No.[id number]:12/15/2024 Progress Notes Patient:?Chandni CLOUD Provider:?Autumn Ordonez DPM :1985???Age:39 Y???Sex:Female D ate:12/15/2024 Address:[address], [id number] Pcp:Roney Reilly MD Subjective: * Chief Complaints: * ??? * Medical History:? * Family History:?Mother: unkn own.?Father: unknown.? * Social History:?Tobacco Use:?Tobacco use other than smoking?Are you an other tobacco user??No ?Tobacco Control (Standard)?Tobacco use:?Nonsmoker ?Additional Findings: Tobacco non-user?Current nonsmoker ???Drugs/Alcohol:?Drugs?Have you used drugs other than those for medical reasons in the past 12 months??No ???Miscellaneous:?Caffeine: yes, frequency:. ?Marital status: single. ???Drug/Alcohol:?AUDIT-C (Standard)?Did you have a drink containing alcohol in the past year??No ?Points?0 ?Interpretation?Negative Objective: * Vitals:? Assessment: Plan: * Treatment: * Images: * The named appointment provid er may or may not be the originator of this progress note, and it is not deemed complete until electronically signed by the appointment provider. Sign off status: Pending * Provider:?Autumn Ordonez DPM Date:?0 12/15/2024 Generated for Srinivas henning/Brandi/Jeannineitting on:?12/20/2024 10:00 AM EST
--- OUTSIDE RECORDS SUMMARY | 2024-12-20 10:00 | XMS_ITS | Patient Health Record ---
Author Organization [facility] Address [address] [place] [address] Care Team Providers Care Fishing Accessories Maker Name Role Phone Roney Reilly MD Primary Care Provider Autumn Carlin Unavailable [phone] Reason For Referral No Information Social History Tobacco Use: Social History Observation [...] Negative Encounters Encounter Location Date Provider Diagnosis [facility] [address] [place] [address] 10/05/2024 Autumn Ordonez [facility] [address] [place] [address] 12/09/2024 Autumn Ordonez Plan Of Treatment Next Appt Details Provider Name:Autumn john, 02/23/2025 02:00:00 PM, [address] [place], [address], Insurance Providers Payer Name Payer Address Payer Phone Subscriber Number Group Number Insured Name Patient Relationship to Insured Coverage Start Date Coverage End Date Medicare National Govt [facility] [address] [facility] [id number] Chandni Shaikh Self - patient is the insured
--- OUTSIDE RECORDS SUMMARY | 2024-12-20 10:00 | XMS_ITS ---
Author Organization [facility] Address [address] [place] [address] Care Team Providers Care Mill Roll Operator Name Role Phone Roney Reilly MD Primary Care Provider Autumn Carlin [phone] REASON FOR VISIT FIXED INCOME ANALYST Encounters Encounter Location Date Provider Diagnosis [address] [address] 10/05/2024 Autumn Ordonez Plan Of Treatment Next Appt Details Provider Name:Autumn john, 02/23/2025 02:00:00 PM, [address] [place], [address], Progress Notes * Lenny CLOUDMeredithOB:1985 ( 39 yo F)Acc No.[id number]:10/05/2024 Patient:?Chandni CLOUD :1985???Age:39 Y???Sex:Female Address:[address] [place], [address] * true * Date:? Generated for Printi juvencio/Brandi/eTransmitting on:?12/20/2024 10:00 AM EST
--- OUTSIDE RECORDS SUMMARY | 2024-12-20 10:00 | XMS_ITS ---
Author Organization [facility] Address [address] [place] [address] Care Team Providers Care Warehouse Laborer Name Role Phone Roney Reilly MD Primary Care Provider Autumn Carlin [phone] REASON FOR VISIT rs appt 12/15/24 Encounters Encounter Location Date Provider Diagnosis [address] [address] 12/09/2024 Autumn Ordonez Plan Of Treatment Next Appt Details Provider Name:Autumn john, 02/23/2025 02:00:00 PM, [address] [place] [address], [phone], Progress Notes * Lenny CLOUDeeDOB:1985 ( 39 yo F)Acc No.[id number]:12/09/2024 Patient:?Chandni CLOUD :1985???Age:39 Y???Sex:Female Address:[address] [place], [address] * true * Date:? Generated for Anahyi juvencio/Brandi/eTransmitting on:?12/20/2024 10:00 AM EST
== END 2024-12-20 09:33 | disposition home or self-care (01) ==
PROVIDERS: Emergency Medicine Emergency Medical Services; Emergency Provider Emergency Medicine; PCP Internal Medicine
DX: R07.9 Chest pain, unspecified (principal); R00.2 Palpitations; R13.10 Dysphagia, unspecified
CPT/HCPCS: 36415; 71046; 80048; 84484; 85025; 93005; 99283

== ENCOUNTER → 2024-12-20 06:15 | Outpatient (BNV) | payer MEDICARE, MEDICAID, SELFPAY | PROVIDERS: Emergency Provider Emergency Medicine; PCP Internal Medicine; Visit Provider Internal Medicine Cardiovascular Disease | DX: R07.9 Chest pain, unspecified (principal); R94.31 Abnormal electrocardiogram [ECG] [EKG] | CPT/HCPCS: 93010 ==

== ENCOUNTER → 2024-12-20 07:18 | Outpatient (BNV) | payer MEDICARE, MEDICAID, SELFPAY | PROVIDERS: Visit Provider Radiology Diagnostic Radiology | DX: R07.9 Chest pain, unspecified (principal); J98.09 Other diseases of bronchus, not elsewhere classified | CPT/HCPCS: 71046 ==

== ENCOUNTER 2024-12-23 11:37 | Outpatient (AMB) | payer MEDICARE, MEDICAID, SELFPAY ==
--- NOTE | 2024-12-23 11:42 | A.OFFPC_ITS ---
Vital Signs 12/23/24 11:43 Height 4 ft 11 in Weight 197 lb BMI 39.8 BP 108/68 Blood Pressure Location Lt brachial Position Sitting Pulse 88 Pulse Source Pulse Oximeter Temp 96.8 F Temp Source Temporal Artery Scan Pulse Oximetry (%) 97 Oxygen Delivery Method Room Air Intake Visit Reasons: GI referral Hris Administrator Required: No Accompanied by: Self / Same As Patient Allergies No Known Allergies Allergy (Verified 12/23/24 11:45) Medication List - Last Reconciled 12/23/24 by Roney Reilly MD albuterol sulfate 90 mcg/actuation 2 puffs inhalation Q6H PRN cefuroxime axetil 500 mg PO BID 7 days fluoxetine 20 mg PO DAILY lidocaine HCl 2% (Lidocaine Viscous) 5 mL mucous membrane BID PRN 15 days medroxyprogesterone (Depo-Provera) 150 mg IM [id number] methylphenidate HCl ER 36 mg PO QAM metoclopramide HCl (Reglan) 5 mg PO TID PRN omeprazole 20 mg PO BID omeprazole 20 mg PO DAILY 14 days quetiapine 150 mg PO DAILY quetiapine ER (Seroquel XR) 200 mg PO BEDTIME Tobacco use date assessed: 12/23/24 Dental Screening Dental Screen Date: 12/23/24 Did you have a dental visit in the last 12 months?: No Did you have a dental problem in the last 6 months where you did not have access to dental care?: No Was dental information given to patient?: No (no teeth) HPI GI referral HPI Details multiple er visits for gerd and dysphagia; has gi consult already pending [facility] Medical History Morbid obesity with BMI of 45.0-49.9, adult Developmental delay, mild Sleep disorder Surgical History No pertinent past surgical history Family History Unknown Adopted Social History Housing: House Alcohol intake: never Patient Tobacco Use Status: Never used Tobacco e-Cigarette/Vaping Use: Never Used Second Hand Smoke Exposure: No service: No Current occupational status: disabled Cognitive needs: No Hearing needs: No Vision needs: No Female Reproductive History Menstrual Age of Menarche: 14 Questionnaire PHQ-9 Over the last 2 weeks, how often have you been bothered by any of the following problems? 1. Little interest or pleasure in doing things: not at all 2. Feeling down, depressed, or hopeless: not at all 3. Trouble falling or staying asleep, or sleeping too much: not at all 4. Feeling tired or having little energy: not at all 5. Poor appetite or overeating: not at all 6. Feeling bad about yourself - or that you are a failure or have let yourself or your family down: not at all 7. Trouble concentrating on things, such as reading the newspaper or watching television: not at all 8. Moving or speaking so slowly that other people could have noticed. Or the opposite - being so fidgety or restless that you have been moving around a lot more than usual: not at all Depression Screening Interpretation: Negative Depression Screening Done: Yes Source: Developed by Drs. Sid Alfred, Rossy Otto, Juwan Hay and colleagues, with an educational marti from [employer]. Thrive Questionnaire Date Thrive assessed: 12/23/24 I am a: Patient What is your living situation today?: I have a steady place to live Within the past 12 months, did the food you bought not last and you didn't have the money to get more?: Never true Within the past 12 months, did you worry whether your food would run out before you got money to buy more?: Never true Do you have trouble paying for medicines?: No Do you have trouble getting transportation to medical appointments?: No Do you have trouble paying your heating and electricity bill?: No Do you have trouble taking care of your child, family member or friend?: No Do you have trouble with day-to-day activities such as bathing, preparing meals, shopping, managing finances, etc.?: No Are you currently unemployed and looking for a job?: No Are you interested in more education?: No Please select the resources that you would like help with: None Currently or been in a relationship where the following occur: No concerns reported THRIVE Score: 0 AUDIT C Alcohol Use Questionnaire (AUDIT-C) 1. How often do you have a drink containing alcohol?: Never 3. How often do you have six or more drinks on one occasion?: Never Total Score: 0 BAIRON-7 AMB Questionnaire BAIRON-7 Date BAIRON - 7 assessed: 12/23/24 Feeling nervous, anxious, or on edge: 0 = Not at all Not being able to stop or control worryin = Not at all Worrying too much about different things: 0 = Not at all Trouble relaxin = Not at all Being so restless that it is hard to sit still: 0 = Not at all Becoming easily annoyed or irritable: 0 = Not at all Feeling afraid as if something awful might happen: 0 = Not at all Total BAIRON-7 score (0-4 normal; 5-9 mild; 10-14 moderate; 15-21 severe): 0 Source: Developed by Drs. Sid Alfred, Rossy Otto, Juwan Hay and colleagues, with an educational marti from [employer]. BAIRON-7 Assessment Billing BAIRON-7 Assessment Tool: BAIRON-7 Assessment 02610 Review of Systems Const Denies chills, Denies headache(s) and Denies weight loss ENT Denies headache(s) Card Denies chest pain, Denies syncope, Denies irregular heart rhythm and Denies dyspnea Resp Denies chest congestion, Denies cough and Denies dyspnea GI Denies abdominal pain, Denies change in stool character, Denies nausea and Denies vomiting Musc Denies deformity and Denies joint swelling Neuro Denies syncope and Denies headache(s) Physical exam (Primary Care) Vital Signs: Last Vital Signs Temp 96.8 F 12/23/24 11:43 Pulse 88 12/23/24 11:43 BP 108/68 12/23/24 11:43 Pulse Ox 97 12/23/24 11:43 Oxygen Delivery Method Room Air 12/23/24 11:43 BMI result Body Mass Index 39.8 Tobacco/Smoking Status: Tobacco use Status Tobacco use date assessed 12/23/24 12/23/24 11:46 Patient Tobacco Use Status Never used Tobacco 12/23/24 11:46 e-Cigarette/Vaping Use Never Used 12/23/24 11:46 Depression Screening Interpretation: Negative Thrive Assessment: Date of Thrive Assessment Date Thrive assessed 12/23/24 12/23/24 11:46 Currently or been in a relationship where the following occur: No concerns reported Const General: cooperative, comfortable, no acute distress and alert Neck Neck: Yes no lymphadenopathy Thyroid: Thyroid normal Resp Effort & Inspection: normal respiratory effort Auscultation: clear to auscultation bilaterally Percussion: percussion normal Cardio Jugular venous distension: no JVD Palpation: normal PMI Rate: regular rate Rhythm: regular rhythm Heart sounds: S1 normal heart sound present and S2 normal heart sound present GI Inspection: Yes normal to inspection Palpation (GI): No hepatosplenomegaly present Skin General skin exam: no rashes or lesions noted Extrem General: Yes no clubbing, cyanosis or edema Coding Level of Care Code Est Pt Level 3 (28200) Diagnoses Chronic GERD K21.9 Additional Codes BAIRON-7 Assessment Billing - BAIRON-7 Assessment Tool: BAIRON-7 Assessment 15781 ([id number]) Assessment & Plan Assessment & Plan (1) Chronic GERD: Code(s): K21.9 - Gastro-esophageal reflux disease without esophagitis Category: Medical Plan: has gi referral Medications: New quetiapine (Seroquel) 50 mg PO TID 90 tabs 1RF fluoxetine 40 mg PO DAILY 30 caps 1RF
[2024-12-23 11:43] VITALS: BP 108/68; PULSE 88; TEMP 36; O2SAT 97; BMI 39.8
--- OUTSIDE RECORDS SUMMARY | 2024-12-23 12:11 | XMS_ITS ---
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 Generated for Printi juvencio/Brandi/eTransmitting on:?12/23/2024 12:10 PM EST
--- OUTSIDE RECORDS SUMMARY | 2024-12-23 12:11 | XMS_ITS ---
[facility] Address [address] [place] [address] Care Team Providers Care Solar Manufacturer'S Representative Name Role Phone Roney Reilly MD Primary Care Provider Autumn Carlin Unavailable [phone] Social History Tobacco Use: Social History Observation [...] Negative Encounters Encounter Location Date Provider Diagnosis [address] [address] 12/15/2024 Autumn Ordonez Plan Of Treatment Next Appt Details Provider Name:Autumn john, 02/23/2025 02:00:00 PM, [address] [place] [address], [address], Progress Notes * PEDROL UIS, LennyeeDOB:1985 ( 39 yo F)Acc No.[id number]:12/15/2024 Progress Notes Patient:?Chandni CLOUD Provider:?Autumn Ordonez DPM :1985???Age:39 Y???Sex:Female D ate:12/15/2024 Address:[address], [id number] Pcp:Roney Reilly MD Subjective: * Chief Complaints: [...] DPM Date:?0 12/15/2024 Generated for Srinivas henning/Brandi/Jeannineitting on:?12/23/2024 12:10 PM EST
--- OUTSIDE RECORDS SUMMARY | 2024-12-23 12:11 | XMS_ITS | Patient Health Record ---
Author Organization [facility] Address [address] [place] [address] Care Team Providers Care Tab Cutting Machine Operator Name Role Phone Roney Reilly MD Primary Care Provider Autumn Carlin Unavailable [phone] Reason For Referral No Information Social History [...] Negative Encounters Encounter Location Date Provider Diagnosis [facility] [address] [place] [address] 10/05/2024 Autumn Ordonez [facility] [address] [place] [address] 12/09/2024 Autumn Ordonez Plan Of Treatment Next Appt Details Provider Name:Autumn john, 02/23/2025 02:00:00 PM, [address] [place], [address], Insurance Providers Payer Name Payer Address Payer Phone Subscriber Number Group Number Insured Name Patient Relationship to Insured Coverage Start Date Coverage End Date Medicare National Govt [facility] [address] [place] [id number] [id number] Chandni Shaikh Self - patient is the insured
--- OUTSIDE RECORDS SUMMARY | 2024-12-23 12:11 | XMS_ITS ---
Author Organization [facility] Address [address] [place] [address] Care Team Providers Care Sign Shop Supervisor Name Role Phone Roney Reilly MD Primary Care Provider Autumn Carlin [phone] REASON FOR VISIT rs appt 12/15/24 Encounters Encounter Location Date Provider Diagnosis [address] [address] 12/09/2024 Autumn Ordonez Plan Of Treatment Next Appt Details Provider Name:Autumn john, 02/23/2025 02:00:00 PM, [address] [place] [address], [address], Progress Notes * Lenny CLOUDeeDOB:1985 ( 39 yo F)Acc No.[id number]:12/09/2024 Patient:?Chandni CLOUD :1985???Age:39 Y???Sex:Female Address:[address] [place], [address] * true * Date:? Generated for Anahyi juvencio/Brandi/eTransmitting on:?12/23/2024 12:10 PM EST
== END 2024-12-23 11:52 | disposition home or self-care (01) ==
PROVIDERS: PCP Internal Medicine; Visit Provider Internal Medicine
DX: K21.9 Gastro-esophageal reflux disease without esophagitis (principal)

== ENCOUNTER → 2024-12-23 11:37 | Outpatient (BNVA) | payer MEDICARE, MEDICAID, SELFPAY | PROVIDERS: PCP Internal Medicine; Visit Provider Internal Medicine | DX: K21.9 Gastro-esophageal reflux disease without esophagitis (principal) | CPT/HCPCS: 96127; 99212 ==

== ENCOUNTER 2024-12-31 10:06 | Outpatient (AMB) | payer MEDICARE, MEDICAID, SELFPAY ==
--- NOTE | 2024-12-31 10:09 | MHC.OFFVIS ---
Vital Signs 12/31/24 10:15 Height 4 ft 11 in Weight 193 lb 1.999 oz BMI 39.0 BP 110/62 Blood Pressure Location Rt brachial Position Sitting Pulse 76 Pulse Source Pulse Oximeter Pulse Oximetry (%) 96 Oxygen Delivery Method Room Air Intake Visit Reasons: dysphagia Intake Note: NEW PATIENT for Dysphagia initial consult. Prior hx of colo/egd? N Chief Complaint; C/O dysphagia w/ foreign body sensation x2 mos. Pt denies any GERD related burning. Denies any other GI sx at this time. Pt has stopped taking omeprazole as they did not see any results and did not know if it was necessary to take until they had this appt to discuss it. Sx seemingly idiopathic in nature. Dry Charge Process Attendant Required: No Accompanied by: Self / Same As Patient Allergies No Known Allergies Allergy (Verified 12/31/24 10:09) Medication List - Last Reconciled 12/31/24 by Gloria Metcalf, [employer]- albuterol sulfate 90 mcg/actuation 2 puffs inhalation Q6H PRN fluoxetine 40 mg PO DAILY medroxyprogesterone (Depo-Provera) 150 mg IM [id number] quetiapine 150 mg PO DAILY HPI HPI dysphagia: Details: 39-year-old female with past medical history of GERD, pharyngitis, dyspnea, obesity, depression, anxiety is here today for initial consultation. Multiple visits in the past 2 months to ER for dysphagia. Patient was placed on omeprazole and Reglan last visit and patient reports that she stopped taking it. Patient reports globus like sensation in her throat. Feels like she has something stuck in the. Patient is able to swallow liquids and able to swallow small solid pieces, however she feels like she has to cause things down very small in order to able to swallow. Patient also has no teeth and is unable to chew very well. Patient denies acid reflux, denies any epigastric pain or discomfort. Denies any nausea or vomiting. Reports moving her bowels, however patient is usually constipated. Patient reports losing several lb as she was on liquid diet for a while. Now she is eating solid foods. Denies melena, hematochezia. [facility] Medical History Morbid obesity with BMI of 45.0-49.9, adult Developmental delay, mild Sleep disorder Surgical History No pertinent past surgical history Family History Unknown Adopted Social History Housing: House Alcohol intake: never Patient Tobacco Use Status: Never used Tobacco e-Cigarette/Vaping Use: Never Used Second Hand Smoke Exposure: No service: No Current occupational status: disabled Cognitive needs: No Hearing needs: No Vision needs: No Female Reproductive History Menstrual Age of Menarche: 14 Review of Systems Const Denies weight gain and Denies weight loss ENT Reports no additional complaints, Reports dysphagia and Denies odynophagia Card Reports no additional complaints Resp Reports no additional complaints GI Denies abdominal pain, Denies belching, Denies melena, Denies bloating, Denies change in bowel habits, Reports constipation (occasional), Reports dysphagia, Denies excessive flatus, Denies dyspepsia, Denies heartburn, Denies diarrhea, Denies loose stools, Denies nausea, Denies odynophagia and Denies vomiting Musc Reports no additional complaints Neuro Reports no additional complaints Psych Reports no additional complaints Endo Reports no additional complaints Physical Exam Vital Signs: BMI result Body Mass Index 39.0 Const General: healthy appearing and no acute distress Nutritional Appearance: obese Orientation/consciousness: patient oriented x3 Resp Effort & Inspection: normal respiratory effort, able to speak in complete sentences, no tracheal deviation and symmetric chest movement Auscultation: clear to auscultation bilaterally Cardio Rate: regular rate GI Inspection: Yes normal to inspection, No distended and Yes obesity Palpation (GI): Soft to palpation, not firm, nontender and No hepatosplenomegaly present Auscultation: normal bowel sounds General: Yes no CVA tenderness Back/Spine/Pelvis Back: no CVA tenderness Skin General skin exam: elasticity normal, turgor normal and dry skin Neuro General: patient oriented x3 Psych Appearance: grossly normal Mental Status: mental status grossly normal Assessment & Plan Assessment & Plan (1) Chronic GERD: Code(s): K21.9 - Gastro-esophageal reflux disease without esophagitis Category: Medical (2) Dysphagia: Code(s): R13.10 - Dysphagia, unspecified Qualifiers: Dysphagia type: oropharyngeal phase Qualified Code(s): R13.12 - Dysphagia, oropharyngeal phase (3) Globus sensation: Code(s): R09.A2 - Foreign body sensation, throat Plan Will send patient for upper GI series with barium swallow to rule out cricopharyngeal achalasia, Schatzki ring, narrowing, esophageal dysmotility, reflux. Patient will start taking Nexium every morning. Avoid dietary triggers and late night snacking. Will check transglutaminase and lipase. Patient will return in the office in 5 weeks, sooner on as needed basis. She is agreeable to this plan verbalizes understanding of instructions. She was given the opportunity to ask questions and all questions answered. Thank you for allowing me participate in her care Orders: Orders Transglutaminase IgA Today R10.9 - Unspecified abdominal pain Lipase Today R10.9 - Unspecified abdominal pain FL upper GI w Ba Swallow Today K21.9 - Gastro-esophageal reflux disease without esophagitis Medications: New esomeprazole magnesium (Nexium) 40 mg PO DAILY 30 caps 5RF K21.9 - Gastro-esophageal reflux disease without esophagitis Coding Level of Care Code New Pt Level 4 (60747) Diagnoses Chronic GERD K21.9 Oropharyngeal dysphagia R13.12 Dysphagia type: oropharyngeal phase Globus sensation R09.A2 Time Spent (min) 45 Comment 30 minutes spent with patient and additional 15 minutes spent reviewing her records
[2024-12-31 10:15] VITALS: BP 110/62; PULSE 76; O2SAT 96; BMI 39.0
--- OUTSIDE RECORDS SUMMARY | 2024-12-31 10:49 | XMS_ITS ---
Author Organization [facility] Address [address] [place] [address] Care Team Providers Care Linecasting Machine Keyboard Operator Name Role Phone Roney Reilly MD Primary Care Provider Autumn Carlin [phone] REASON FOR VISIT rs appt 12/15/24 Encounters Encounter Location Date Provider Diagnosis [address] [address] 12/09/2024 Autumn Ordonez Plan Of Treatment Next Appt Details Provider Name:Autumn john, 02/23/2025 02:00:00 PM, [address] [place] [address], [address], Progress Notes * Lenny CLOUDeeDOB:1985 ( 39 yo F)Acc No.[id number]:12/09/2024 Patient:?Chandni CLOUD :1985???Age:39 Y???Sex:Female Address:[address] [place], [address] * true * Date:? Generated for Anahyi juvencio/Brandi/eTransmitting on:?12/31/2024 10:49 AM EST
--- OUTSIDE RECORDS SUMMARY | 2024-12-31 10:49 | XMS_ITS ---
Author Organization [facility] Address [address] [place] [address] Care Team Providers Care Community Health Planning Director Name Role Phone Roney Reilly MD Primary Care Provider Autumn Carlin Unavailable [phone] Social History Tobacco Use: Social History Observation [...] Negative Encounters Encounter Location Date Provider Diagnosis [address] [address] 12/15/2024 Autumn Ordonez Plan Of Treatment Next Appt Details Provider Name:Autumn john, 02/23/2025 02:00:00 PM, [address] [place] [address], [address], Progress Notes * PEDRO LUISLennyeeDOB:1985 ( 39 yo F)Acc No.[id number]:12/15/2024 Progress Notes Patient:?Chandni CLOUD Provider:?Autumn Ordonez DPM :1985???Age:39 Y???Sex:Female D ate:12/15/2024 Address:[address], [id number] Pcp:Roney Reilly MD Subjective: * Chief Complaints: [...] Ordonez DPM Date:?0 12/15/2024 Generated for Srinivas henning/Brandi/eTruthsmitting on:?12/31/2024 10:49 AM EST
--- OUTSIDE RECORDS SUMMARY | 2024-12-31 10:49 | XMS_ITS | Patient Health Record ---
Author Organization [facility] Address [address] [place] [address] Care Team Providers Care Automotive Parts Counter Assistant Name Role Phone Roney Reilly MD Primary Care Provider Autumn Carlin Unavailable [phone] Reason For Referral No Information Social History [...] Negative Encounters Encounter Location Date Provider Diagnosis [facility] [address] [place] [address] 10/05/2024 Autumn Ordonez [facility] [address] [place] [address] 12/09/2024 Autumn Ordonez Plan Of Treatment Next Appt Details Provider Name:Autumn john, 02/23/2025 02:00:00 PM, [address] [place], [address], Insurance Providers Payer Name Payer Address Payer Phone Subscriber Number Group Number Insured Name Patient Relationship to Insured Coverage Start Date Coverage End Date Medicare National Govt [facility] [address] [place] [id number] Chandni Shaikh Self - patient is the insured
--- OUTSIDE RECORDS SUMMARY | 2024-12-31 10:50 | XMS_ITS ---
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 Generated for Printi juvencio/Brandi/eTransmitting on:?12/31/2024 10:49 AM EST
== END 2024-12-31 15:07 | disposition home or self-care (01) ==
PROVIDERS: PCP Internal Medicine; Visit Provider Nurse Practitioner Family
DX: K21.9 Gastro-esophageal reflux disease without esophagitis (principal); R13.12 Dysphagia, oropharyngeal phase; R09.A2 Foreign body sensation, throat
CPT/HCPCS: 99204

== ENCOUNTER → 2024-12-31 10:06 | Outpatient (BNVA) | payer MEDICARE, MEDICAID, SELFPAY | PROVIDERS: PCP Internal Medicine; Visit Provider Nurse Practitioner Family ==

== ENCOUNTER 2024-12-31 10:56 | Outpatient (REF) | payer MEDICARE, MEDICAID, SELFPAY ==
[2024-12-31 12:09] LABS: Lipase 12 U/L (8-78)
[2025-01-03 18:54] LABS: Transglutaminase IgA <1.0 U/mL
== END 2024-12-31 10:57 | disposition home or self-care (01) ==
LOC: HO.LAB 10:56
PROVIDERS: PCP Internal Medicine; Visit Provider Nurse Practitioner Family
DX: R10.9 Unspecified abdominal pain (principal); K21.9 Gastro-esophageal reflux disease without esophagitis; R13.12 Dysphagia, oropharyngeal phase; R09.A2 Foreign body sensation, throat
CPT/HCPCS: 36415; 83690; 86364; 99202

== ENCOUNTER 2025-01-10 07:52 | Outpatient (REF) | payer MEDICARE, MEDICAID, SELFPAY ==
--- NOTE | ~2025-01-10 | FL_ITS ---
EXAMINATION: XR GI SERIES CLINICAL INFORMATION: Gastroesophageal reflux disease without esophagitis COMPARISON: None available. TECHNIQUE: Routine upper GI contrast study was performed in the upright and lying position. FINDINGS: Following oral administration of thick barium and effervescent venules and upright view there is normal propagation bolus from the oral cavity through the pharynx, esophagus and the stomach without any evidence of obstruction, narrowing or stricture. On placing patient in supine and prone lying there is trace gastroesophageal reflux but no hiatal hernia seen. The mucosal pattern of stomach, duodenal bulb and the C-loop is normal. The mucosa of esophagus is unremarkable. FLUOROSCOPY TIME: 1:51 minutes DOSE AREA PRODUCT: 1553 uGy-m2 (microgray-meter squared) FL/FL upper GI w Ba Swallow IMPRESSION: Trace gastroesophageal reflux without hiatal hernia. Rest of the upper GI exam is unremarkable. Electronically signed by: Ryan Odonnell MD 01/10/2025 09:05 AM [facility]
--- OUTSIDE RECORDS SUMMARY | 2025-01-10 07:54 | XMS_ITS | Patient Health Record ---
Author Organization [facility] Address [address] [place] [address] Care Team Providers Care Occupational Health Professional Name Role Phone Roney Reilly MD Primary Care Provider Autumn Carlin Unavailable [phone] Reason For Referral No Information Social History [...] Negative Encounters Encounter Location Date Provider Diagnosis [facility] [address] [place] [address] 10/05/2024 Autumn Ordonez [facility] [address] [place] [address] 12/09/2024 Autumn Ordonez Plan Of Treatment Next Appt Details Provider Name:Autumn john, 02/23/2025 02:00:00 PM, [address] [place], [address], Insurance Providers Payer Name Payer Address Payer Phone Subscriber Number Group Number Insured Name Patient Relationship to Insured Coverage Start Date Coverage End Date Medicare National Govt [facility] [address] [place] [id number] [phone] [id number] Chandni Shaikh Self - patient is the insured
--- OUTSIDE RECORDS SUMMARY | 2025-01-10 07:54 | XMS_ITS ---
Author Organization [facility] Address [address] [place] [address] Care Team Providers Care Metalsmith Apprentice Name Role Phone Roney Reilly MD Primary Care Provider Autumn Carlin [phone] REASON FOR VISIT rs appt 12/15/24 Encounters Encounter Location Date Provider Diagnosis [address] [address] 12/09/2024 Autumn Ordonez Plan Of Treatment Next Appt Details Provider Name:Autumn john, 02/23/2025 02:00:00 PM, [address] [place] [address], [address], Progress Notes * Lenny CLOUDeeDOB:1985 ( 39 yo F)Acc No.[id number]:12/09/2024 Patient:?Chandni CLOUD :1985???Age:39 Y???Sex:Female Address:[address] [place], [address] * true * Date:? Generated for Srinivas henning/Brandi/eTransmitting on:?01/10/2025 07:54 AM EST
--- OUTSIDE RECORDS SUMMARY | 2025-01-10 07:55 | XMS_ITS ---
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 Generated for Anahyi juvencio/Brandi/eTransmitting on:?01/10/2025 07:54 AM EST
--- OUTSIDE RECORDS SUMMARY | 2025-01-10 07:55 | XMS_ITS ---
Author Organization [facility] Address [address] [place] [address] Care Team Providers Care Homebound Teacher Name Role Phone Roney Reilly MD Primary Care Provider Autumn Carlin Unavailable [phone] Social History Tobacco Use: Social History Observation [...] Negative Encounters Encounter Location Date Provider Diagnosis [address] [address] 12/15/2024 Autumn Ordonez Plan Of Treatment Next Appt Details Provider Name:Autumn john, 02/23/2025 02:00:00 PM, [address] [place] [address], [address], Progress Notes * PEDRO LUISLennyeeDOB:1985 ( 39 yo F)Acc No.[id number]:12/15/2024 Progress Notes Patient:?Chandni CLOUD Provider:?Autumn Ordonez DPM :1985???Age:39 Y???Sex:Female D ate:12/15/2024 Address:[address], [place] Pcp:Roney Reilly MD Subjective: * Chief Complaints: [...] DPM Date:?0 12/15/2024 Generated for Srinivas henning/Brandi/Jeannineitting on:?01/10/2025 07:54 AM EST
== END 2025-01-10 07:53 | disposition home or self-care (01) ==
LOC: HO.XRAY 07:52
PROVIDERS: PCP Internal Medicine; Visit Provider Nurse Practitioner Family
DX: K21.9 Gastro-esophageal reflux disease without esophagitis (principal)
CPT/HCPCS: 74240

== ENCOUNTER → 2025-01-10 07:53 | Outpatient (BNV) | payer MEDICARE, MEDICAID, SELFPAY | PROVIDERS: PCP Internal Medicine; Visit Provider Radiology Diagnostic Radiology | DX: K21.9 Gastro-esophageal reflux disease without esophagitis (principal) | CPT/HCPCS: 74246 ==

== ENCOUNTER 2025-02-18 10:58 | Outpatient (AMB) | payer MEDICARE, MEDICAID, SELFPAY ==
--- NOTE | 2025-02-18 11:04 | A.OFFVIS_ITS ---
Vital Signs 02/18/25 11:12 Height 4 ft 11 in BP 118/52 L Blood Pressure Location Rt brachial Position Sitting Pulse 86 Pulse Source Pulse Oximeter Pulse Oximetry (%) 96 Oxygen Delivery Method Room Air Intake Visit Reasons: f/u 5 wk Intake Note: ESTABLISHED PATIENT for Dysphagia. Imaging and Labs done. Chief Complaint; Pt denies any GI concerns at this time. Pt is only taking PPI PRN but is doing well with this regimen. No additional notes or concerns. Risk Management Consultant Required: No Accompanied by: Self / Same As Patient Allergies No Known Allergies Allergy (Verified 02/18/25 11:04) HPI HPI f/u 5 wk: Details: LAST VISIT: Chronic GERD Dysphagia Globus sensation Plan Will send patient for upper GI series with barium swallow to rule out cricopharyngeal achalasia, Schatzki ring, narrowing, esophageal dysmotility, reflux. Patient will start taking Nexium every morning. Avoid dietary triggers and late night snacking. Will check transglutaminase and lipase. Patient will return in the office in 5 weeks, sooner on as needed basis. She is agreeable to this plan verbalizes understanding of instructions. She was given the opportunity to ask questions and all questions answered. ? Thank you for allowing me participate in her care Orders Orders Transglutaminase IgA Today R10.9 Lipase Today R10.9 FL upper GI w Ba Swallow Today K21.9 Medications New esomeprazole magnesium (Nexium) 40 mg PO DAILY 30 caps 5RF K21.9 TODAY'S VISIT: Patient is here today for follow-up. Patient reports that she has been feeling much better. No longer has feeling of dysphagia or globus like sensation. Patient does however repeats to me again that she does not like to take pills and specially large capsules. She only takes Nexium occasionally and she opens the capsule and takes it with applesauce. Patient had upper GI series with barium swallow that shows mild reflux. Patient denies any nausea or vomiting. All breast of her blood work was normal. Patient denies any dyspepsia, dysphagia or odynophagia. Denies any other GI concerning symptoms. [facility] Medical History Morbid obesity with BMI of 45.0-49.9, adult Developmental delay, mild Sleep disorder Surgical History No pertinent past surgical history Family History Unknown Adopted Social History Housing: House Alcohol intake: never Patient Tobacco Use Status: Never used Tobacco e-Cigarette/Vaping Use: Never Used Second Hand Smoke Exposure: No service: No Current occupational status: disabled Cognitive needs: No Hearing needs: No Vision needs: No Female Reproductive History Menstrual Age of Menarche: 14 Review of Systems Const Denies weight gain and Denies weight loss ENT Reports no additional complaints, Denies dysphagia and Denies odynophagia Card Reports no additional complaints Resp Reports no additional complaints GI Denies abdominal pain, Denies belching, Denies melena, Denies bloating, Denies change in bowel habits, Denies dysphagia, Denies excessive flatus, Denies dyspepsia, Denies heartburn, Denies diarrhea, Denies loose stools, Denies nausea, Denies odynophagia and Denies vomiting Musc Reports no additional complaints Neuro Reports no additional complaints Psych Reports no additional complaints Endo Reports no additional complaints Physical Exam Vital Signs: Last Vital Signs Pulse 86 02/18/25 11:12 BP 118/52 L 02/18/25 11:12 Pulse Ox 96 02/18/25 11:12 Oxygen Delivery Method Room Air 02/18/25 11:12 Const General: healthy appearing and no acute distress Nutritional Appearance: obese Orientation/consciousness: patient oriented x3 Resp Effort & Inspection: normal respiratory effort, able to speak in complete s entences, no tracheal deviation and symmetric chest movement Auscultation: clear to auscultation bilaterally Cardio Rate: regular rate GI Inspection: Yes normal to inspection, No distended and Yes obesity Palpation (GI): Soft to palpation, not firm, nontender and No hepatosplenomegaly present Auscultation: normal bowel sounds General: Yes no CVA tenderness Back/Spine/Pelvis Back: no CVA tenderness Skin General skin exam: elasticity normal, turgor normal and dry skin Neuro General: patient oriented x3 Psych Appearance: grossly normal Mental Status: mental status grossly normal Results Reviewed Results Reviewed: UPPER GI SERIES WITH BARIUM SWALLOW 01/10/2025 MPRESSION: Trace gastroesophageal reflux without hiatal hernia. Rest of the upper GI exam is unremarkable. Laboratory Tests 12/31/24 11:09 Lipase 12 Tiss Transglutamin IgA <1.0 Assessment & Plan Assessment & Plan (1) Chronic GERD: Code(s): K21.9 - Gastro-esophageal reflux disease without esophagitis Category: Medical (2) Dysphagia: Code(s): R13.10 - Dysphagia, unspecified Qualifiers: Dysphagia type: oropharyngeal phase Qualified Code(s): R13.12 - Dysphagia, oropharyngeal phase (3) Globus sensation: Code(s): R09.A2 - Foreign body sensation, throat Plan Patient reports to be feeling better and taking only Nexium as needed. Discussed with patient the PPIs do not work like that. Patient does have mild reflux and she would benefit from low-dose PPI. We have discussed that she can start taking pantoprazole 20 mg daily for few months and then we can discontinue if her symptoms will go away. Avoid dietary triggers and late night snacking. Staying upright for minimum 3 hours after meals discussed with patient. Patient will follow-up in 3-4 months, sooner on as needed basis. She is agreeable to this plan and verbalizes understanding of instructions. She was given the op portunity to ask questions and all questions answered. Thank you for allowing me to participate in her care Medications: New pantoprazole 20 mg PO DAILY 90 tabs 1RF Discontinued esomeprazole magnesium Discontinued Reason: Doctor's Order 40 mg PO DAILY 30 caps 5RF K21.9 - Gastro-esophageal reflux disease without esophagitis Coding Level of Care Code Est Pt Level 3 (55133) Diagnoses Chronic GERD K21.9 Oropharyngeal dysphagia R13.12 Dysphagia type: oropharyngeal phase Globus sensation R09.A2 Time Spent (min) 25 Comment 15 minutes spent with patient and additional 10 minutes spent reviewing her records
[2025-02-18 11:12] VITALS: BP 118/52; PULSE 86; O2SAT 96
--- OUTSIDE RECORDS SUMMARY | 2025-02-18 11:57 | XMS_ITS ---
Author Organization [facility] Address [address] [place] [address] Care Team Providers Care Form Setter Helper Name Role Phone Roney Reilly MD Primary Care Provider Autumn Carlin Unavailable [phone] Social History Tobacco Use: Social History Observation [...] Negative Encounters Encounter Location Date Provider Diagnosis [address] [address] 12/15/2024 Autumn Ordonez Plan Of Treatment Next Appt Details Provider Name:Autumn john, 02/23/2025 02:00:00 PM, [address] [place] [address], [id number], Progress Notes * PEDRO LUISLennyeeDOB:1985 ( 39 yo F)Acc No.[id number]:12/15/2024 Progress Notes Patient:?Chandni CLOUD Provider:?Autumn Ordonez DPM :1985???Age:39 Y???Sex:Female D ate:12/15/2024 Address:[address], [id number] Pcp:Roney Reilly MD Subjective: * Chief Complaints: [...] DPM Date:?0 12/15/2024 Generated for Srinivas henning/Brandi/Jeannineitting on:?02/18/2025 11:57 AM EDT
--- OUTSIDE RECORDS SUMMARY | 2025-02-18 11:57 | XMS_ITS ---
Author Organization [facility] Address [address] [place] [address] Care Team Providers Care Fire Extinguisher Technician Name Role Phone Roney Reilly MD Primary Care Provider Autumn Carlin [phone] REASON FOR VISIT LEGAL ADVISOR Encounters Encounter Location Date Provider Diagnosis [address] [address] 10/05/2024 Autumn Ordonez Plan Of Treatment Next Appt Details Provider Name:Autumn john, 02/23/2025 02:00:00 PM, [address] [place], [address], Progress Notes * Lenny CLOUDMeredithOB:1985 ( 39 yo F)Acc No.[id number]:10/05/2024 Patient:?Chandni CLOUD :1985???Age:39 Y???Sex:Female Address:[address] [place], [address] * true * Date:? Generated for Printi ng/Fatigreg/eTransmitting on:?02/18/2025 11:57 AM EDT
--- OUTSIDE RECORDS SUMMARY | 2025-02-18 11:57 | XMS_ITS | Patient Health Record ---
Author Organization [facility] Address [address] [place] [address] Care Team Providers Care Banjo Repairer Name Role Phone Roney Reilly MD Primary Care Provider Autumn Carlin Unavailable [phone] Reason For Referral No Information Social History [...] Negative Encounters Encounter Location Date Provider Diagnosis [facility] [address] [place] [address] 10/05/2024 Autumn Ordonez [facility] [address] [place] [address] 12/09/2024 Autumn Ordonez Plan Of Treatment Next Appt Details Provider Name:Autumn john, 02/23/2025 02:00:00 PM, [address] [place], [address], Insurance Providers Payer Name Payer Address Payer Phone Subscriber Number Group Number Insured Name Patient Relationship to Insured Coverage Start Date Coverage End Date Medicare National Govt [facility] [address] [place] [phone] [id number] Chandni Shaikh Self - patient is the insured
--- OUTSIDE RECORDS SUMMARY | 2025-02-18 11:57 | XMS_ITS ---
Author Organization [facility] Address [address] [place] [address] Care Team Providers Care Social Services Assistant Name Role Phone Roney Reilly MD Primary Care Provider Autumn Carlin [phone] REASON FOR VISIT rs appt 12/15/24 Encounters Encounter Location Date Provider Diagnosis [address] [address] 12/09/2024 Autumn Ordonez Plan Of Treatment Next Appt Details Provider Name:Autumn john, 02/23/2025 02:00:00 PM, [address] [place] [address], [phone], Progress Notes * Lenny CLOUDeeDOB:1985 ( 39 yo F)Acc No.[id number]:12/09/2024 Patient:?Chandni CLOUD :1985???Age:39 Y???Sex:Female Address:[address] [place], [address] * true * Date:? Generated for Anahyi juvencio/Brandi/eTransmitting on:?02/18/2025 11:57 AM EDT
== END 2025-02-18 11:41 | disposition home or self-care (01) ==
LOC: HO.HGI 10:59
PROVIDERS: Visit Provider Nurse Practitioner Family
DX: K21.9 Gastro-esophageal reflux disease without esophagitis (principal); R13.12 Dysphagia, oropharyngeal phase; R09.A2 Foreign body sensation, throat
CPT/HCPCS: 99213

== ENCOUNTER → 2025-02-18 10:58 | Outpatient (BNVA) | payer MEDICARE, MEDICAID, SELFPAY | PROVIDERS: Visit Provider Nurse Practitioner Family | DX: K21.9 Gastro-esophageal reflux disease without esophagitis (principal); R13.12 Dysphagia, oropharyngeal phase; R09.A2 Foreign body sensation, throat | CPT/HCPCS: 99212 ==

== ENCOUNTER 2025-05-31 09:56 | Outpatient (AMB) | payer MEDICARE, MEDICAID, SELFPAY ==
--- NOTE | 2025-05-31 10:00 | A.OFFPC_ITS ---
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 Accompanied by: Self / Same As Patient Allergies No Known Allergies Allergy (Verified 05/31/25 10:13) Medication List - Last Reconciled 05/31/25 by Enma Fair PA-C albuterol sulfate 90 mcg/actuation 2 puffs inhalation Q6H PRN esomeprazole magnesium 40 mg PO DAILY fluoxetine 40 mg PO DAILY medroxyprogesterone (Depo-Provera) 150 mg IM [id number] quetiapine 150 mg (3 x 50 mg) PO DAILY Tobacco use date assessed: 05/31/25 Dental Screening Dental Screen Date: 05/31/25 Did you have a dental visit in the last 12 months?: Yes Did you have a dental problem in the last 6 months where you did not have access to dental care?: No Was dental information given to patient?: No HPI SUMAN DR Wetzel HPI Details 39-year-old female with past medical his tory of morbid obesity, asthma, GERD last seen 12/2024 coming in for transfer care from Dr. Reilly.? In review of the notes, patient was seen by [facility] Gastroenterology 02/2025 continue on pantoprazole 20 for chronic GERD and follow up in 3-4 months. Presenting with a routine wellness visit and management of chronic conditions. The patient has a history of asthma but reports not using her rescue inhaler for the past five months. She experiences dyspnea occasionally, particularly when walking fast or climbing stairs, but does not require frequent use of her inhaler. The patient was switched back to esomeprazole from pantoprazole and prefers tablet form over capsules. The patient engages in regular walking and has experienced weight fluctuations, currently weighing 208 pounds, down from 233 pounds last year. Mammogram: not due at this time Vaccines: [facility] Medical History Morbid obesity with BMI of 45.0-49.9, adult Developmental delay, mild Sleep disorder Surgical History No pertinent past surgical history Family History Unknown Adopted Social History Housing: House Alcohol intake: never Patient Tobacco Use Status: Never used Tobacco e-Cigarette/Vaping Use: Never Used Second Hand Smoke Exposure: No service: No Current occupational status: disabled Cognitive needs: No Hearing needs: No Vision needs: No Female Reproductive History Menstrual Age of Menarche: 14 Questionnaire PHQ-9 Over the last 2 weeks, how often have you been bothered by any of the following problems? 1. Little interest or pleasure in doing things: not at all 2. Feeling down, depressed, or hopeless: not at all 3. Trouble falling or staying asleep, or sleeping too much: not at all 4. Feeling tired or having little energy: not at all 5. Poor appetite or overeating: not at all 6. Feeling bad about yourself - or that you are a failure or have let yourself or your family down: not at all 7. Trouble concentrating on things, such as reading the newspaper or watching television: not at all 8. Moving or speaking so slowly that other people could have noticed. Or the opposite - being so fidgety or restless that you have been moving around a lot more than usual: not at all 9. Thoughts that you would be better off or of hurting yourself in some way: not at all Total score: 0 Depression Screening Interpretation: Negative Depression Screening Done: Yes 57264 - PHQ-9 Billing: Yes Source: Developed by Drs. Sid Alfred, Rossy Otto, Juwan Hay and colleagues, with an educational marti from [employer]. Thrive Questionnaire Date Thrive assessed: 05/31/25 I am a: Patient What is your living situation today?: I have a steady place to live Within the past 12 months, did the food you bought not last and you didn't have the money to get more?: Never true Within the past 12 months, did you worry whether your food would run out before you got money to buy more?: Never true Do you have trouble paying for medicines?: No Do you have trouble getting transportation to medical appointments?: No Do you have trouble paying your heating and electricity bill?: No Do you have trouble taking care of your child, family member or friend?: No Do you have trouble with day-to-day activities such as bathing, preparing meals, shopping, managing finances, etc.?: No Are you currently unemployed and looking for a job?: No Are you interested in more education?: No Please select the resources that you would like help with: None Currently or been in a relationship where the following occur: No concerns reported THRIVE Score: 0 AUDIT C Alcohol Use Questionnaire (AUDIT-C) 1. How often do you have a drink containing alcohol?: Monthly or less 2. How many drinks containing alcohol do you have on a typical day when you are drinking?: 1 or 2 3. How often do you have six or more drinks on one occasion?: Never Total Score: 1 BAIRON-7 AMB Questionnaire BAIRON-7 Date BAIRON - 7 assessed: 05/31/25 Feeling nervous, anxious, or on edge: 0 = Not at all Not being able to stop or control worryin = Not at all Worrying too much about different things: 0 = Not at all Trouble relaxin = Not at all Being so restless that it is hard to sit still: 0 = Not at all Becoming easily annoyed or irritable: 0 = Not at all Feeling afraid as if something awful might happen: 0 = Not at all Total BAIRON-7 score (0-4 normal; 5-9 mild; 10-14 moderate; 15-21 severe): 0 Source: Developed by Drs. Sid Alfred, Rossy Otto, Juwan Hay and colleagues, with an educational marti from [employer]. BAIRON-7 Assessment Billing BAIRON-7 Assessment Tool: BAIRON-7 Assessment 17278 Review of Systems Const Denies body aches, Denies fatigue, Denies fever(s), Denies frequent falls, Denies headache(s) and Denies weakness Eyes Reports no additional complaints and Denies change in vision ENT Denies dysphagia, Denies dizziness, Denies facial pain, Denies headache(s), Denies nasal congestion and Denies odynophagia Card Denies chest pain, Denies syncope, Denies irregular heart rhythm, Denies leg edema, Denies lightheadedness and Denies dyspnea Resp Denies cough and Denies dyspnea GI Denies abdominal pain, Denies constipation, Denies dysphagia, Denies dyspepsia, Reports heartburn, Denies diarrhea, Denies nausea, Denies odynophagia and Denies vomiting Denies urinary frequency, Denies dysuria, Denies urinary hesitancy and Denies urinary urgency Musc Denies back pain and Denies myalgias Skin/Breast Reports system reviewed and no additional complaints, except as documented Neuro Denies dizziness, Denies syncope, Denies frequent falls, Denies headache(s) and Denies weakness Psych Reports no additional complaints Endo Denies fatigue Physical exam (Primary Care) Vital Signs: Last Vital Signs Pulse 69 05/31/25 10:03 BP 116/64 05/31/25 10:03 Pulse Ox 98 05/31/25 10:03 BMI result Body Mass Index 42.1 Tobacco/Smoking Status: Tobacco use Status Tobacco use date assessed 05/31/25 05/31/25 10:02 Patient Tobacco Use Status Never used Tobacco 05/31/25 10:02 e-Cigarette/Vaping Use Never Used 05/31/25 10:02 PHQ-9: PHQ-9 Score PHQ-9: Total score 0 05/31/25 10:05 Depression Screening Interpretation: Negative Thrive Assessment: Date of Thrive Assessment Date Thrive assessed 05/31/25 05/31/25 10:05 Currently or been in a relationship where the following occur: No concerns reported Const General: cooperative, healthy appearing, comfortable and no acute distress Orientation/consciousness: patient oriented x3 HENMT Head: Yes normocephalic Ears: hearing grossly normal bilaterally, external ears normal, TM's normal bilaterally and EAC's normal General nose exam: Normal external nose present Face and sinus: Yes normal facial exam and Yes sinuses nontender Mouth: Normal oral and palatal mucosa present and tongue normal Throat: Yes posterior oropharynx normal Eyes General: appearance normal, both eyes and all related structures Conjunctivae: conjunctivae normal Pupils: Equal, round and reactive pupils present EOM: EOMs intact bilaterally and No Nystagmus present Neck Neck: Yes normal visual inspection, Yes full ROM and Yes no lymphadenopathy Chest Chest palpation & inspection: normal inspection of the chest Resp Effort & Inspection: normal respiratory effort Auscultation: clear to auscultation bilaterally, no crackles, no rales, no rhonchi, no wheezes and breath sounds present Cardio Rate: regular rate Rhythm: regular rhythm Peripheral pulses: radial pulses present and dorsalis pedis present GI Inspection: Yes normal to inspection and No Abdominal wall edema Palpation (GI): Soft to palpation, not firm and nontender Auscultation: normal bowel sounds Rectal Exam - Female: deferred General: Yes no CVA tenderness Back/Spine/Pelvis Back: no CVA tenderness Skin General skin exam: no rashes or lesions noted Neuro General: patient oriented x3 Cranial nerves: Yes Equal, round and reactive pupils present, Yes Midline tongue present, Yes Ability to bilaterally elevate shoulders present and No Nystagmus present Gait exam (Neuro): Normal gait present Extrem General: Yes normal to inspection, Yes full ROM, No no pedal edema and No edema Psych Speech and movement: Normal speech and movement present Affect: normal affect Insight: Good insight present (Psych) Judgement: Good judgement present (Psych) Coding Level of Care Code Est Pt Prev Care 18-39y(79420) Diagnoses Physical exam Z00.00 Depression F32.9 Morbid obesity with BMI of 45.0-49.9, adult E66.01; Z68.42 Chronic GERD K21.9 Mild intermittent asthma with acute exacerbation J45.21 Asthma severity: mild Asthma persistence: intermittent Asthma complication type: with acute exacerbation Hypokalemia E87.6 Additional Codes BAIRON-7 Assessment Billing - BAIRON-7 Assessment Tool: BAIRON-7 Assessment 23995 ([id number]) PHQ-9 - 92381 - PHQ-9 Billing: Yes ([id number]) Assessment & Plan Assessment & Plan (1) Physical exam: Comment: do labs Code(s): Z00.00 - Encounter for general adult medical examination without abnormal findings Category: Medical Plan: Patient is up-to-date on all recommended routine screenings and vaccinations for her age. Healthy diet and regular exercise is encouraged. Blood work is up-to-date and has been reviewed with the patient. I did not order for updated blood work that was missing her most recent labs. Plan to follow up yearly or sooner as needed. (2) Depression: Code(s): F32.9 - Major depressive disorder, single episode, unspecified Category: Medical Plan: Patient feels well managed on the fluoxetine 40 mg however she does not like the capsules as they are difficult to swallow because of the capsule material. She is preferring tablets and prescription was sent for fluoxetine 40 mg tablets today. (3) Morbid obesity with BMI of 45.0-49.9, adult: Code(s): E66.01 - Morbid (severe) obesity due to excess calories; Z68.42 - Body mass index [BMI] 45.0-49.9, adult Category: Medical Plan: Healthy diet and regular exercise is encouraged. (4) Chronic GERD: Code(s): K21.9 - Gastro-esophageal reflux disease without esophagitis Category: Medical Plan: Avoid trigger foods such as citrus, tomato products, soda, caffeine, spicy foods and other foods that may be irritating to your stomach. Avoid laying flat 3-4 hours after eating and elevate the head of the bed 30 degrees to prevent acid from moving into the esophagus. Continue on Esomeprazole (5) Asthma: Code(s): J45.909 - Unspecified asthma, uncomplicated Category: Medical Qualifiers: Asthma severity: mild Asthma persistence: intermittent Asthma complication type: with acute exacerbation Qualified Code(s): J45.21 - Mild intermittent asthma with (acute) exacerbation Plan: Asthma currently controlled on present medications. Continue on albuterol as needed.? Avoid triggers such as allergies. (6) Hypokalemia: Code(s): E87.6 - Hypokalemia Category: Medical Plan: Potassium low on last labs plan to repeat potassium treatment Plan The patient will undergo blood work to monitor potassium levels and cholesterol as part of her annual wellness check. She is advised to continue using her rescue inhaler for asthma only as needed and to report any increase in usage. The patient prefers esomeprazole in tablet form for GERD management, and this has been prescribed accordingly. She is encouraged to maintain her current exercise routine and monitor her weight. Follow-up is planned annually unless new symptoms arise or blood work indicates a need for earlier intervention. This note was constructed using voice recognition software. While every effort has been made to ensure accuracy and provider service representative, still areas may have been included sometimes these areas may affect the content or meeting of the given symptoms. Total time spent caring for the patient today was 30 minutes. This includes time spent before the visit reviewing the chart, time spent during the visit, and time spent after the visit and documentation. Patient was informed an d verbally consented to the use of an ambient scribe for clinic note documentation during this visit. Orders: Orders Comprehensive Met. Panel Today K21.9 - Gastro-esophageal reflux disease without esophagitis, Z00.00 - Encounter for general adult medical examination without abnormal findings Lipid Panel Today E78.00 - Pure hypercholesterolemia, unspecified, K21.9 - Gastro-esophageal reflux disease without esophagitis Medications: New fluoxetine 40 mg (2 x 20 mg) PO DAILY 180 tabs 0RF 90 days Changed From quetiapine 150 mg (3 x 50 mg) PO DAILY 90 tabs 0RF To quetiapine 150 mg (3 x 50 mg) PO DAILY 270 tabs 0RF 90 days Discontinued fluoxetine Discontinued Reason: Patient no longer taking 40 mg PO DAILY 30 caps 0RF
[2025-05-31 10:03] VITALS: BP 116/64; PULSE 69; O2SAT 98; BMI 42.1
--- OUTSIDE RECORDS SUMMARY | 2025-05-31 10:48 | XMS_ITS | Patient Health Record ---
Author Organization [facility] Address [address] [place] [address] Care Team Providers Care Oriental Medicine Practitioner Name Role Phone Roney Reilly MD Primary Care Provider Unavaila Autumn Molina Unavailable [phone] Reason For Referral No Information Medications Medication SIG (Take, Route, Frequency, Duration) Notes Start Date End Date Status QUEtiapine Fumarate ER 200 MG TAKE 1 TABLET BY MOUTH AT BEDTIME Oral; Duration: 30 Days Active FLUoxetine HCl 20 MG TAKE 1 CAPSULE BY M OUTH DAILY Oral; Duration: 30 Days Active Esomeprazole Magnesium 40 MG TAKE 1 CAPSULE BY MOUTH DAILY Oral; Duration: 30 Days Active FLUoxetine HCl 40 MG TAKE 1 CAPSULE BY M OUTH DAILY Oral; Duration: 30 Days Active buPROPion HCl ER (SR) 200 MG TAKE 1 TABLET BY MOUTH EVERY MORNING Oral; Duration: 90 Days Active QUEtiapine Fumarate 200 MG TAKE 1 TABLET BY MOUTH AT BEDTIME. STOP 300 MG Oral; Duration: 90 Days Active QUEtiapine Fumarate 50 MG TAKE 3 TABLETS BY MOUTH DAILY Oral; Duration: 30 Days Active Pantoprazole Sodium 20 MG Oral; Duration: 90 Days Active Social History Tobacco Use: Social History Observation [...] Negative Encounters Encounter Location Date Provider Diagnosis [facility] [address] [place] [address] 10/05/2024 Autumn Ordonez [facility] [place] [address] [place] [address] 12/09/2024 Autumn Ordonez [facility] [place] [address] [place] [address] 02/23/2025 Autumn Mery Plan Of Treatment No Information Insurance Providers Payer Name Payer Address Payer Phone Subscriber Number Group Number Insured Name Patient Relationship to Insured Coverage Start Date Coverage End Date [employer] [address] [place] [address] [id number] Chandni Shaikh Self - patient is the insured
== END 2025-05-31 10:30 | disposition home or self-care (01) ==
LOC: HO.HMCH 09:57
DX: Z00.00 Encounter for general adult medical examination without abnormal findings (principal); F32.9 Major depressive disorder, single episode, unspecified; E66.01 Morbid (severe) obesity due to excess calories; Z68.42 Body mass index [BMI] 45.0-49.9, adult; K21.9 Gastro-esophageal reflux disease without esophagitis; J45.21 Mild intermittent asthma with (acute) exacerbation; E87.6 Hypokalemia

== ENCOUNTER → 2025-05-31 09:56 | Outpatient (BNVA) | payer MEDICARE, MEDICAID, SELFPAY | DX: Z00.00 Encounter for general adult medical examination without abnormal findings (principal); F32.9 Major depressive disorder, single episode, unspecified; E66.01 Morbid (severe) obesity due to excess calories; J45.21 Mild intermittent asthma with (acute) exacerbation; Z68.42 Body mass index [BMI] 45.0-49.9, adult; E87.6 Hypokalemia; Z71.3 Dietary counseling and surveillance | CPT/HCPCS: 96127; 99395 ==

== ENCOUNTER 2025-08-29 10:28 | Outpatient (REF) | payer MEDICARE, MEDICAID, SELFPAY ==
[2025-08-29 12:12] LABS: Alanine Aminotransferase 23 U/L (0-31); Albumin Level 4.8 g/dL (3.5-5.0); Alkaline Phosphatase 61 U/L (39-117); Anion Gap 12 (12-20); Aspartate Amino Transferase 24 U/L (5-31); Blood Urea Nitrogen 14 mg/dL (9-16); Calcium 9.1 mg/dL (8.4-10.2); Carbon Dioxide 27 mmol/L (22-29); Chloride 105 mmol/L (96-108); Cholesterol 169 mg/dL (<200); Estimated Glomerular Filt Rate > 60; HDL Cholesterol 58 mg/dL (>40); Potassium 4.3 mmol/L (3.3-5.1); Sodium 140 mmol/L (135-145); Total Protein 7.1 g/dL (6.5-8.0); Triglycerides 53 mg/dL (<150)
== END 2025-08-29 10:29 | disposition home or self-care (01) ==
LOC: HO.LAB 10:28
DX: Z00.00 Encounter for general adult medical examination without abnormal findings (principal); K21.9 Gastro-esophageal reflux disease without esophagitis; E78.00 Pure hypercholesterolemia, unspecified
CPT/HCPCS: 36415; 80053; 80061